=== PATIENT | female | born 1965 | race African-American/Black ===

== ENCOUNTER 2018-02-26 11:42 | Inpatient (IN) | payer OTHER ==
--- NOTE | 2018-02-26 12:11 | PDOC ---
History of Present Illness - General Chief Complaint: Pain Stated Complaint: PAIN Time Seen by Provider: 02/26/18 11:52 History Source: Patient - History of Present Illness Initial Comments: 02/26/18 12:58 52F with pmh of obesity, depression, HTN (on spironolactone, losartan and torsemide), CHF, HLD, dm2, diabetic neuropathy, rheumatoid and osteoarthritis presents to the ED with 10/10 right elbow pain since waking up this morning. The pain is felt over the skin and present from the mid upper arm to the mid forearm. Never had that kind of pain before. Put on a lidocaine patch on it this morning which didn't seem to help. She didn't take any of her medication in 2 days. Last blood sugar she checked was 112 02/26/18 13:18 Past History - Past Medical History Allergies/Adverse Reactions: Allergies Allergy/AdvReac Type Severity Reaction Status Date / Time canagliflozin [From Invokana] Allergy Verified 02/26/18 12:22 Review of Systems - Review of Systems Able to Perform ROS?: Yes Is the patient limited Guamanian proficient: No Constitutional: No: Symptoms Reported HEENTM: No: Symptoms Reported Respiratory: No: Symptoms reported Cardiac (ROS): No: Symptoms Reported ABD/GI: No: Symptoms Reported : No: Symptoms Reported Musculoskeletal: Yes: See HPI. No: Symptoms Reported Integumentary: No: Symptoms Reported Neurological: Yes: See HPI. No: Symptoms reported All Other Systems: Reviewed and Negative *Physical Exam - Physical Exam General Appearance: Yes: Nourished, Appropriately Dressed, Moderate Distress, Obese HEENT: positive: EOMI, PARISH, Normal ENT Inspection Respiratory/Chest: positive: Lungs Clear, Normal Breath Sounds. negative: Chest Tender, Respiratory Distress Cardiovascular: positive: Regular Rhythm, Regular Rate, S1, S2 Gastrointestinal/Abdominal: positive: Normal Bowel Sounds, Flat, Soft. negative : Tender Musculoskeletal: positive: Other (equisitely tender right elbow, hyperalgesia. ) Extremity: negative: Coldness, Swelling, Erythema, Inflammation Neurologic: positive: Fully Oriented, Alert, Normal Mood/Affect, Other (tearful , crying in pain) ED Treatment Course - LABORATORY CBC & Chemistry Diagram: 02/26/18 13:06 02/26/18 13:06 Medical Decision Making - Medical Decision Making 02/26/18 13:38 gout vs arterial emboli vs zoster vs arthritis vs septic joint Despite the hypersensitivity of the skin surface, the lack of evidence of skin lesions makes zoster unlikely. A radial pulse was not appreciated because the patient was in too much pain to be evaluated, however her hand didn't feel cold. Will reassess, pehaps with doppler She has known arthritis but that would hardly explain why she is so hypersensitive. We will check her wbc and uric acid levels to help us r/o gout/septic joint even thought there no swelling or erythema Pain control. FS: 112 02/26/18 14:46 Elevated level of uric acid. Spoke to her PCP. Dr Plunkett who agreed with the plan of giving her indomethacin despite her creatinine level of 1.7, NS, and admitting her. *DC/Admit/Observation/Transfer Diagnosis at time of Disposition: Acute gouty arthritis - Discharge Dispostion Decision to Admit order: Yes - Referrals - Patient Instructions - Post Discharge Activity
[2018-02-26 12:13] VITALS: BMI 69.0
[2018-02-26] MEDS ORDERED: morphine CARPU-JECT 2 MG/1 ML DISP.SYRIN IM ONE (12:25)
--- NOTE | 2018-02-26 12:29 | PDOC ---
Attending Attestation - HPI HPI: 02/26/18 13:52 The patient is a 52 year old female, with a significant past medical history of hypertension, congestive heart failure, COPD, diabetes, peripheral neuropathy, rheumatoid arthritis, osteoarthritis and sciatica, who presents to the emergency department via EMS with right elbow/arm pain since she woke up this morning. The patient reports that she lives in [place] and has all of her medical care at [place] but has been staying with her daughter who lives in [place]. The patient describes the right upper extremity pain as throbbing, rates it a 10/10 in severity and states that she has pain with all movements of the right upper extremity. She states that this is the first time she has ever experienced these symptoms. She is right hand dominant. The patient denies any trauma to the affected extremity. Allergies: Canagliflozin. Past Surgical History: None reported. Social History: Non-smoker. Denies alcohol or drug use. PCP: In [facility]) - Physicial Exam PE: 02/26/18 13:16 GENERAL: Awake, alert and responsive to questions. HEAD: Normal with no signs of trauma. EYES: PERRLA, EOMI, sclera anicteric, conjunctiva clear. ENT: Ears normal, nares patent, oropharynx clear without exudates. Dry mucous membranes. NECK: Normal range of motion, supple without lymphadenopathy, JVD, or masses. LUNGS: Nasal cannula in place. No respiratory distress. Breath sounds equal, clear to auscultation bilaterally. No wheezes, no crackles. HEART: Regular rate and rhythm, normal S1 and S2 without murmur, rub or gallop. ABDOMEN: Soft, nontender, normoactive bowel sounds. No guarding, no rebound. No masses palpable. EXTREMITIES: Right upper extremity, the patient is unable to extend elbow. Warm , but no erythema. Exquisite tenderness to palpation of the right forearm and just above the right elbow. No masses. No drainage. NEUROLOGICAL: Cranial nerves II through XII grossly intact. Normal speech. No focal neurological deficits. MUSCULOSKELETAL: Back nontender to palpation. No CVA tenderness. SKIN: Warm, dry, normal turgor, no rashes or lesions noted. Documentation prepared by Katherine Collazo, acting as medical case worker for Tania Folyd MD. <Katherine Nuñez - Last Filed: 02/26/18 14:45> - Resident Resident Name: Mike Nettles - ED Attending Attestation I have performed the following: I have examined & evaluated the patient, The case was reviewed & discussed with the resident, I agree w/resident's findings & plan, Exceptions are as noted - Medical Decision Making 52 yo RHD F presenting to the ER with a complaint of severe right elbow pain Symptoms began today Unable to range her elbow No fevers No prior episodes like this Given morphine for pain 02/27/18 10:07 Laboratory Tests 02/26/18 13:06 WBC 18.4 H Hgb 8.9 L Hct 29.0 L Plt Count 245 02/27/18 10:08 Laboratory Tests 02/26/18 02/26/18 02/26/18 13:05 13:06 17:50 ESR 109 H BUN 44 H Creatinine 1.7 H C-Reactive Protein 35.4 H Urine Blood 2+ H Urine Nitrite Negative Ur Leukocyte Esterase 3+ H Urine WBC (Auto) 728 02/27/18 10:11 Xray - degenerative changed Will treat UTI ? Gout ? Septic Arthritis ? Septic bursitis Consult Ortho No NSAIDs per pt PMD (Given her renal fxn) Morphine/Tylenol for pain Admit to Hospitalist 02/27/18 10:12 Elbow arthrocentesis by Ortho Appears to be gout, awaiting cell count <Tania Floyd - Last Filed: 02/27/18 10:13>
[2018-02-26] MEDS ORDERED: morphine CARPU-JECT 4 MG/1 ML DISP.SYRIN IVPUSH ONE (13:04)
[2018-02-26] MEDS ORDERED: METHOCARBAMOL 500 MG TABLET PO ONE (13:05)
[2018-02-26] MEDS ORDERED: morphine SULFATE 4 MG/ML VIAL ONE (13:21)
[2018-02-26] MEDS ORDERED: METHOCARBAMOL 500 MG TABLET ONE (13:21)
[2018-02-26 13:35] LABS: BASO % 0.7 % (0-2.0); EOS % 0.2 % (0-4.5); HEMOGLOBIN 8.9 GM/dL (10.7-15.3); LYMPH % 10.5 % (8-40); MCH 20.6 pg (25.7-33.7); MCHC 30.5 g/dl (32.0-36.0); MEAN CELL VOLUME 67.5 fl (80-96); MEAN PLT VOLUME 9.6 fl (7.5-11.1); MONO % 10.3 % (3.8-10.2); NEUT % 78.3 % (42.8-82.8); PLATELET COUNT 245 K/MM3 (134-434); RDW 21.6 % (11.6-15.6); WHITE BLOOD COUNT 18.4 K/mm3 (4.0-10.0)
[2018-02-26 14:05] LABS: ALBUMIN 2.6 g/dl (3.4-5.0); ALK PHOS 133 U/L (45-117); ANION GAP 9 MMOL/L (8-16); BILIRUBIN,TOTAL 0.6 mg/dL (0.2-1); BLOOD UREA NITROGEN 44 mg/dL (7-18); CALCIUM 9.4 mg/dL (8.5-10.1); CHLORIDE 92 mmol/L (98-107); CO2 30 mmol/L (21-32); CREATININE 1.7 mg/dL (0.55-1.3); GLUCOSE,RANDOM 155 mg/dL (74-106); POTASSIUM 4.3 mmol/L (3.5-5.1); SGOT/AST 26 U/L (15-37); SGPT/ALT 25 U/L (13-61); SODIUM 132 mmol/L (136-145); TOT PROT 8.1 g/dl (6.4-8.2)
[2018-02-26] MEDS ORDERED: SODIUM CHLORIDE 1,000 ML IV STA (14:36)
[2018-02-26] MEDS ORDERED: GABAPENTIN 300 MG CAPSULE (FP) PO ONE (14:46)
[2018-02-26] MEDS: INDOMETHACIN 50 MG CAPSULE PO ONE ×2 (14:46→15:24)
[2018-02-26] MEDS ORDERED: GABAPENTIN 100 MG CAPSULE (FP) ONE (14:47)
[2018-02-26 15:09] LABS: ANISOCYTOSIS 2+; MACROCYTOSIS 0; PLATELET ESTIMATE NORMAL; TARGET CELLS 1+
--- NOTE | 2018-02-26 16:05 | HP ---
CHIEF COMPLAINT: R elbow pain x 1 day PCP: HISTORY OF PRESENT ILLNESS: 52 y/o F with PMH HTN, CHF, s/p ICD (2004), COPD (on 2L 02), DM with peripheral neuropathy, RA (not on meds), OA (received jt injections for in past), sciataca , who presents to the ED c/o R elbow pain x 1 day. As per pt, her L ankle became painful x 4 days ago, limiting her ROM. A day later, she developed edema in the joint. During this time, she continued to take her home meds of tramadol and gabapentin without relief. Last night, pt subsequently developed new R elbow pain and swelling that was a 10/10 and a/w throbbing, erythema and limited ROM. Denies trauma to joint, however endorses increased pressure on her RUE when supporting her body d/t LLE pain. Pt has had poor appetite over the past week. Denies SAPP, fever, chills, chest pain or pressure, rashes, other swollen joints, dx of gout, or changes in urinary or bowel function. At baseline she ambulates with a walker and cane. Rheum hx States that she is currently not on meds for RA, and has received jt injections in past for OA. Without current active swollen joints. Family hx positive for ? 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 has not smoked in the past 7 months Alcohol: used to drink heavily on weekends; liquor, wine, beer - has not drank in 7 months Drugs: used to smoke crack cocaine, unable to quantify and "numerous other drugs "; would not elaborate Family History: mother - HTN, arthritis, ?gout Allergies canagliflozin [From Invokana] Allergy (Verified 02/26/18 12:22) HOME MEDICATIONS: Home Medications Medication Instructions Recorded Acetaminophen 650 mg PO PRN PRN 02/26/18 Amitriptyline HCl 25 mg PO HS 02/26/18 Aspirin 81 mg PO DAILY 02/26/18 Atorvastatin Ca [Lipitor] 80 mg PO HS 02/26/18 Bisacodyl Suppository [Dulcolax 10 mg RC DAILY 02/26/18 Suppository -] Budesonide/Formeterol Fumarate 2 inh PO BID 02/26/18 [SYMBICORT 80/4.5mcg -] Calcium Carb, Cit/Mag Cit, Gly 600 each PO DAILY 02/26/18 [Localnesium Tablet] Carvedilol 37.5 mg PO BID 02/26/18 Docusate Sodium 100 mg PO TID 02/26/18 Dulaglutide [Trulicity] 1.5 mg SQ WEEKLY 02/26/18 Gabapentin 300 mg PO HS 02/26/18 Insulin Degludec [Tresiba 98 unit SQ DAILY 02/26/18 Flextouch U-200] Lidocaine 5% Patch [Lidoderm Patch 1 patch TP DAILY 02/26/18 -] Losartan Potassium 25 mg PO DAILY 02/26/18 Spironolactone 25 mg PO DAILY 02/26/18 Tiotropium [place] [Spiriva] 1 inh PO DAILY 02/26/18 Torsemide 40 mg PO HS 02/26/18 Torsemide 80 mg PO DAILY 02/26/18 Tramadol HCl 100 mg PO BID 02/26/18 REVIEW OF SYSTEMS CONSTITUTIONAL: Absent: fever, chills, diaphoresis, generalized weakness, malaise, loss of appetite, weight change HEENT: Absent: rhinorrhea, nasal congestion, throat pain, throat swelling, difficulty swallowing, mouth swelling, ear pain, eye pain, visual changes CARDIOVASCULAR: Absent: chest pain, syncope, palpitations, irregular heart rate, lightheadedness , peripheral edema RESPIRATORY: Absent: cough, shortness of breath, dyspnea with exertion, orthopnea, wheezing, stridor, hemoptysis GASTROINTESTINAL: Absent: abdominal pain, abdominal distension, nausea, vomiting, diarrhea, constipation, melena, hematochezia GENITOURINARY: Absent: dysuria, frequency, urgency, hesitancy, hematuria, flank pain, genital pain MUSCULOSKELETAL: +L ankle pain, +R elbow pain Absent: myalgia, arthralgia, joint swelling, back pain, neck pain SKIN: Absent: rash, itching, pallor HEMATOLOGIC/IMMUNOLOGIC: Absent: easy bleeding, easy bruising, lymphadenopathy, frequent infections ENDOCRINE: Absent: unexplained weight gain, unexplained weight loss, heat intolerance, cold intolerance NEUROLOGIC: Absent: headache, focal weakness or paresthesias, dizziness, unsteady gait, seizure, mental status changes, bladder or bowel incontinence PSYCHIATRIC: Absent: anxiety, depression, suicidal or homicidal ideation, hallucinations. PHYSICAL EXAMINATION Vital Signs - 24 hr 02/26/18 11:43 Temperature 97.7 F Pulse Rate 90 Respiratory 16 Rate Blood Pressure 147/81 O2 Sat by Pulse 100 Oximetry (%) GENERAL: Lying flat, on 2L NC 02, in no acute distress HEAD: Normal with no signs of trauma. EYES: Pupils equal, round and reactive to light, extraocular movements intact EARS, NOSE, THROAT: Ears normal, nares patent, +coating on tongue, with dry mucous membranes NECK: Normal range of motion, supple LUNGS: decreased 2/2 body habitus. however equal, clear to auscultation bilaterally. No wheezes, and no crackles. HEART: Regular rate and rhythm, normal S1 and S2 without murmur, rub or gallop. ABDOMEN: Soft, obese, nontender, not distended, normoactive bowel sounds MUSCULOSKELETAL: L ankle: swollen, limited active and passive ROM. with erythema. LLE: erythema, diffusely TTP. with numerous wounds. R elbow: difficulty with active and passive ROM d/t extreme pain. with erythema, edema. L hand: without swollen joints, nodules, or deviation. R hand: diffusely TTP in all joints LOWER EXTREMITIES: 2+ pt pulses, well-perfused. +pedal edema (L>R) NEUROLOGICAL: Cranial nerves II-XII intact. PSYCHIATRIC: Cooperative. SKIN: Warm, dry, normal turgor Laboratory Results - last 24 hr 02/26/18 02/26/18 02/26/18 12:29 13:06 13:06 WBC 18.4 H RBC 4.30 Hgb 8.9 L Hct 29.0 L MCV 67.5 L MCH 20.6 L MCHC 30.5 L RDW 21.6 H Plt Count 245 MPV 9.6 Absolute Neuts (auto) 14.4 H Neutrophils % 78.3 Lymphocytes % 10.5 Monocytes % 10.3 H Eosinophils % 0.2 Basophils % 0.7 Nucleated RBC % 0 Hypochromia 1+ Platelet Estimate Normal Polychromasia 0 Poikilocytosis 0 Anisocytosis 2+ Microcytosis 2+ Macrocytosis 0 Target Cells 1+ Sodium 132 L Potassium 4.3 Chloride 92 L Carbon Dioxide 30 Anion Gap 9 BUN 44 H Creatinine 1.7 H Creat Clearance w eGFR 31.69 POC Glucometer 112.07348 Random Glucose 155 H Uric Acid Calcium 9.4 Total Bilirubin 0.6 AST 26 ALT 25 Alkaline Phosphatase 133 H C-Reactive Protein 35.4 H Total Protein 8.1 Albumin 2.6 L Additional tests 02/26/18 02/26/18 02/26/18 13:05 13:06 13:06 ESR 109 H Uric Acid 16.1 H* C-Reactive Protein 35.4 H ASSESSMENT/PLAN: 52 y/o F with PMH HTN, CHF, s/p ICD (2004), COPD (on 2L 02), DM with peripheral neuropathy, RA (not on meds), OA (received jt injections for in past), sciataca , who presents to the ED c/o R elbow pain x 1 day. # R elbow pain -with sudden onset R elbow pain. differentials include: gout, pseudogout. has following risk fx: HTN, obesity, DM, elevated uric, on diuretics. without hx of recent alcohol use however heavy drinking in past. no recent trauma. infectious arthritis additional differential -though less likely as afebrile, w/white count. elevated ESR, CRP -will need arthrocentesis to determine etiology; crystal analysis. if inflammatory, wbc >2000 -f/u R elbow XR determine if erosive dz, alternate etiologies -f/u stat coags -rheum consult; Dr. Suarez. will tap this evening -will likely need course of prednisone. tbd by rheum -would not recommend NSAIDs at this time d/t renal fnc #Edematous LLE -with limited ROM d/t body habitus -r/o DVT. f/u duplex #HTN-uncontrolled -recommend holding diuretics at this time may be exacerbating ?gout #ANITHA -encourage PO intake; no IVF at this time d/t CHF #CHF -s/p ICD (2004) -daily wts, fluid restrict, 2g Na control -hold diuretics at this time #COPD -continue 2L 02. currently not in exacerbation -CPAP at night -may use duonebs, nebs PRN #DM -ISS ACHS -BGM #F/E/N no fluids at this time, avoid overload with CHF continue to follow lytes #PPX Hep 5k TID #Dispo observation Visit type - Emergency Visit Emergency Visit: Yes ED Registration Date: 02/26/18 Care time: The patient presented to the Emergency Department on the above date and was hospitalized for further evaluation of their emergent condition. - New Patient This patient is new to me today: Yes Date on this admission: 02/26/18 - Critical Care Critical Care patient: No
--- NOTE | 2018-02-26 16:12 | HP ---
CHIEF COMPLAINT: Right elbow pain and left ankle pain PCP: Emilie PayneArab HISTORY OF PRESENT ILLNESS: 52 yo F with PMH HTN, COPD (2L home O2), Systolic CHF (ICD in place), IDDM with peripheral neuropathy, RA, OA, and sciatica admitted with severe pain in her right elbow that began one day ago but was severely worse on waking up this AM. This pain was preceded by left ankle pain which began 5 days ago. She tried using some of her lidocaine patches on her ankle and arm without relief. She notes swelling and redness in the ankle but no visual changes in her elbow. She denies any episodes previously similar to this and denies any gout history. She denies any trauma, scratches, or bites. Denies any fevers, chills, increased SOB from baseline, chest pain, abdominal pain, n/v/d. ER course was notable for: (1) Elbow X-ray (2) Morphine 4 mg IV, Neurontin, Robaxin (3) Recent Travel: none PAST MEDICAL HISTORY: HTN, COPD (2L home O2), Systolic CHF (ICD in place), IDDM with peripheral neuropathy, RA, OA, and sciatica PAST SURGICAL HISTORY: I&D of finger on left hand Carpal tunnel release Social History: Smoking: Former heavy smoker, currently one pack per week for the last 7 month Alcohol: Former heavy drinker on weekends, but has not had alcohol in recent history Drugs: Former crack cocaine user Family History: Allergies canagliflozin [From Invokana] Allergy (Verified 02/26/18 12:22) HOME MEDICATIONS: Home Medications Medication Instructions Recorded Acetaminophen 650 mg PO PRN PRN 02/26/18 Amitriptyline HCl 25 mg PO HS 02/26/18 Aspirin 81 mg PO DAILY 02/26/18 Atorvastatin Ca [Lipitor] 80 mg PO HS 02/26/18 Bisacodyl Suppository [Dulcolax 10 mg RC DAILY 02/26/18 Suppository -] Budesonide/Formeterol Fumarate 2 inh PO BID 02/26/18 [SYMBICORT 80/4.5mcg -] Calcium Carb, Cit/Mag Cit, Gly 600 each PO DAILY 02/26/18 [Localnesium Tablet] Carvedilol 37.5 mg PO BID 02/26/18 Docusate Sodium 100 mg PO TID 02/26/18 Dulaglutide [Trulicity] 1.5 mg SQ WEEKLY 02/26/18 Gabapentin 300 mg PO HS 02/26/18 Insulin Degludec [Tresiba 98 unit SQ DAILY 02/26/18 Flextouch U-200] Lidocaine 5% Patch [Lidoderm Patch 1 patch TP DAILY 02/26/18 -] Losartan Potassium 25 mg PO DAILY 02/26/18 Spironolactone 25 mg PO DAILY 02/26/18 Tiotropium [place] [Spiriva] 1 inh PO DAILY 02/26/18 Torsemide 40 mg PO HS 02/26/18 Torsemide 80 mg PO DAILY 02/26/18 Tramadol HCl 100 mg PO BID 02/26/18 REVIEW OF SYSTEMS CONSTITUTIONAL: Absent: fever, chills, diaphoresis, generalized weakness, malaise, loss of appetite, weight change HEENT: Absent: rhinorrhea, nasal congestion, throat pain, throat swelling, difficulty swallowing, mouth swelling, ear pain, eye pain, visual changes CARDIOVASCULAR: Absent: chest pain, syncope, palpitations, irregular heart rate, lightheadedness , peripheral edema RESPIRATORY: shortness of breath (baseline), dyspnea with exertion, orthopnea ( baseline) Absent: cough, , wheezing, stridor, hemoptysis GASTROINTESTINAL: Absent: abdominal pain, abdominal distension, nausea, vomiting, diarrhea, constipation, melena, hematochezia GENITOURINARY: Absent: dysuria, frequency, urgency, hesitancy, hematuria, flank pain, genital pain MUSCULOSKELETAL: arthralgia, joint swelling, back pain Absent: myalgia, , neck pain SKIN: Absent: rash, itching, pallor HEMATOLOGIC/IMMUNOLOGIC: Absent: easy bleeding, easy bruising, lymphadenopathy, frequent infections ENDOCRINE: Absent: unexplained weight gain, unexplained weight loss, heat intolerance, cold intolerance NEUROLOGIC: Absent: headache, focal weakness or paresthesias, dizziness, unsteady gait, seizure, mental status changes, bladder or bowel incontinence PSYCHIATRIC: Absent: anxiety, depression, suicidal or homicidal ideation, hallucinations. PHYSICAL EXAMINATION Vital Signs - 24 hr 02/26/18 11:43 Temperature 97.7 F Pulse Rate 90 Respiratory 16 Rate Blood Pressure 147/81 O2 Sat by Pulse 100 Oximetry (%) GENERAL: A&O, Moderate acute distress out of proportion to exam, likely secondary to pain HEAD: Normocephalic, atraumatic. EYES: PERRL, no scleral icterus EARS, NOSE, THROAT: oropharynx clear without exudates. Dry mucous membranes. NECK: supple without lymphadenopathy LUNGS: Mild wheezes noted, decreased breath sounds diffusely HEART: Regular rate and rhythm, normal S1 and S2 without murmur ABDOMEN: Soft, morbidly obese, nontender to palpation, normoactive bowel sounds MUSCULOSKELETAL: Exam limited due to pain, severe tenderness to palpation of right elbow and left ankle, active and passive ROM very minimally tolerated. Left ankle with some erythema and swelling. EXTREMITIES: 2+ pulses, warm, well-perfused. No peripheral edema. NEUROLOGICAL: Cranial nerves II-XII grossly intact. Normal speech. PSYCHIATRIC: Cooperative. Good eye contact. Heightened emotional response SKIN: Warm, dry, no rashes or lesions noted Laboratory Results - last 24 hr 02/26/18 02/26/18 02/26/18 12:29 13:06 13:06 WBC 18.4 H RBC 4.30 Hgb 8.9 L Hct 29.0 L MCV 67.5 L MCH 20.6 L MCHC 30.5 L RDW 21.6 H Plt Count 245 MPV 9.6 Absolute Neuts (auto) 14.4 H Neutrophils % 78.3 Lymphocytes % 10.5 Monocytes % 10.3 H Eosinophils % 0.2 Basophils % 0.7 Nucleated RBC % 0 Hypochromia 1+ Platelet Estimate Normal Polychromasia 0 Poikilocytosis 0 Anisocytosis 2+ Microcytosis 2+ Macrocytosis 0 Target Cells 1+ Sodium 132 L Potassium 4.3 Chloride 92 L Carbon Dioxide 30 Anion Gap 9 BUN 44 H Creatinine 1.7 H Creat Clearance w eGFR 31.69 POC Glucometer 112.67933 Random Glucose 155 H Uric Acid Calcium 9.4 Total Bilirubin 0.6 AST 26 ALT 25 Alkaline Phosphatase 133 H C-Reactive Protein 35.4 H Total Protein 8.1 Albumin 2.6 L 02/26/18 13:06 WBC RBC Hgb Hct MCV MCH MCHC RDW Plt Count MPV Absolute Neuts (auto) Neutrophils % Lymphocytes % Monocytes % Eosinophils % Basophils % Nucleated RBC % Hypochromia Platelet Estimate Polychromasia Poikilocytosis Anisocytosis Microcytosis Macrocytosis Target Cells Sodium Potassium Chloride Carbon Dioxide Anion Gap BUN Creatinine Creat Clearance w eGFR POC Glucometer Random Glucose Uric Acid 16.1 H* Calcium Total Bilirubin AST ALT Alkaline Phosphatase C-Reactive Protein Total Protein Albumin ASSESSMENT/PLAN: 52 yo F with PMH HTN, COPD (2L home O2), Systolic CHF (ICD in place), IDDM with peripheral neuropathy, RA, OA, and sciatica admitted with severe pain in her right elbow that began one day ago but was severely worse on waking up this AM. Right Elbow and Left Ankle Pain -Most likely new onset of Gout -ESR, CRP elevated -Uric acid 16.1 -Xray noted -Ortho and Rheumatology both consulted, one of which tap the elbow tonight -Following Arthrocentesis pt should receive steroids, will defer to rheumatology -Avoid NSAIDs with current renal function and unknown renal history Elevated BUN/Cr -Pt states that her BUN/Cr are monitored by her chief lock operator as she is on multiple diuretics -She does not however endorse knowing if the numbers were ever elevated -Currently 44/1.7 -Trend BMP -Encouraged PO intake COPD -Requires 2L of home O2 -Verify and continue home regimen Systolic CHF -Currently stable with no signs of acute fluid overload -Case discussed with PCP who states echo which revealed EF of 30-35% -Pt with known AICD in place -Hold fluids for now, but with elevated BUN/Cr and clinically dry, encouraged pt for PO intake IDDM -BGMs ACHS -Insulin Sliding scale for glycemic control Sciatica/OA/RA -Verify and Continue home pain medication regimen DVT Prophylaxis -Heparin 5000 units SQ TID FEN -Fluids: NONE -Electrolytes: No electrolyte abnormalities, BMP in AM -Nutrition: Diabetic Na Controlled Diet Disposition Med/Surg Visit type - Emergency Visit Emergency Visit: Yes ED Registration Date: 02/26/18 Care time: The patient presented to the Emergency Department on the above date and was hospitalized for further evaluation of their emergent condition. - New Patient This patient is new to me today: Yes Date on this admission: 02/26/18 - Critical Care Critical Care patient: No
--- NOTE | 2018-02-26 17:13 | PN ---
Teaching Attending Note Name of Resident: Darrius Davis ATTENDING PHYSICIAN STATEMENT I saw and evaluated the patient. I reviewed the resident's note and discussed the case with the resident. I agree with the resident's findings and plan as documented with exceptions below. SUBJECTIVE: 52 yf with pMHx of NICM, systolic HF, last EF 30-35% 1.5 years ago, S/p ICD 2004 , prior h/o etoh/cocaine use, HTN, morbid obesity, DINA on nightly CPAP, IDDM, HLD, LLE neuropathy with chronic pain, CKD (last cr 01/2018 1.6), COPD on 2L home oxygen, ?rheumatoid arthritis, Osteoarthritis, recently admitted with CHF exac in 12/2017, then with low back pain on short steroid taper, sent to rehab, d/[facility] home recently had left ankle pain/swelling/redness limiting her ambulation starting 4-5 days ago. This AM woke up with sudden onset of right elbow pain with inability to move shoulder, prompting her to come to the ED. Denies any fevers, chills, recent trauma, prior h/o gout. Reports minimal ambulation last 4-5 days, also decreased PO intake. Confirms compliance with her medications, sleeps in a recliner but no recent orthopnea/PND, chest pain, palpitations, dyspnea, dizziness or concerns otherwise. 12 point ROS done, as above OBJECTIVE: Vital Signs Period Temp Pulse Resp BP Sys/Bowen Pulse Ox Last 24 Hr 97.7 F 90 16 147/81 100 Intake & Output 02/23/18 02/24/18 02/25/18 02/26/18 23:59 23:59 23:59 23:59 Weight 390 lb GENERAL: Awake, alert, and fully oriented, in no acute distress, anxious but co- operative, in no acute distress. HEAD: Normal with no signs of trauma. EYES: Pupils equal, round and reactive to light, extraocular movements intact, sclera anicteric, conjunctiva clear. No lid lag. EARS, NOSE, THROAT: Ears normal, nares patent, oropharynx clear without exudates. dry lips and mucous membrane NECK: soft, supple, no JVD visualized but exam limited by habitus LUNGS: Breath sounds equal, clear to auscultation bilaterally. No wheezes, and no crackles. No accessory muscle use. HEART:S1S2 regular ABDOMEN: Soft, obese, nontender, not distended, normoactive bowel sounds, no guarding, no rebound, no masses. MUSCULOSKELETAL: refusing right elbow exam, wincing in pain with minimal to no palpation of Right elbow/forearm fingers, able to move fingers, no swelling/ erythema of fingers or right wrist noted, Morbidly obese, but no obvious swelling/erthema/warmth noted, refuses ROM exam, screams on slight touch UPPER EXTREMITIES: as above, otherwise unremarkable LOWER EXTREMITIES: LLE redness/erythema/swelling lower 1/3rd, some decrease ROM left ankle, no calf tenderness, chronic skin hyperpigmentation with superimposed swelling/erythema/tenderness noted NEUROLOGICAL: Cranial nerves II-XII intact. Normal speech. Gait deferred PSYCHIATRIC: Cooperative. Good eye contact. Appropriate mood and affect. SKIN: Warm, dry, normal turgor, no rashes or lesions noted, normal capillary refill. Home Medications Medication Instructions Recorded Acetaminophen 650 mg PO Q4H PRN 02/26/18 Amitriptyline HCl 25 mg PO HS 02/26/18 Aspirin 81 mg PO DAILY 02/26/18 Atorvastatin Ca [Lipitor] 80 mg PO HS 02/26/18 Bisacodyl Suppository [Dulcolax 10 mg RC DAILY 02/26/18 Suppository -] Budesonide/Formeterol Fumarate 2 inh PO BID 02/26/18 [SYMBICORT 80/4.5mcg -] Calcium Carb, Cit/Mag Cit, Gly 600 mg PO DAILY 02/26/18 [Localnesium Tablet] Carvedilol 37.5 mg PO BID 02/26/18 Docusate Sodium 100 mg PO TID 02/26/18 Dulaglutide [Trulicity] 1.5 mg SQ WEEKLY 02/26/18 Gabapentin 300 mg PO HS 02/26/18 Insulin Degludec [Tresiba 98 unit SQ DAILY 02/26/18 Flextouch U-200] Lidocaine 5% Patch [Lidoderm Patch 1 patch TP DAILY 02/26/18 -] Losartan Potassium 25 mg PO DAILY 02/26/18 Spironolactone 25 mg PO DAILY 02/26/18 Tiotropium [place] [Spiriva] 1 inh PO DAILY 02/26/18 Torsemide 40 mg PO HS 02/26/18 Torsemide 80 mg PO DAILY 12/20/18 Tramadol HCl 100 mg PO Q12H PRN 02/26/18 Active Medications Heparin Sodium (Porcine) (Heparin -) 5,000 unit SQ TID DERECK Insulin Aspart (Novolog Vial Sliding Scale -) 1 vial SQ ACHS [facility]; Protocol Laboratory Results - last 24 hr 02/26/18 02/26/18 02/26/18 12:29 13:05 13:06 WBC 18.4 H RBC 4.30 Hgb 8.9 L Hct 29.0 L MCV 67.5 L MCH 20.6 L MCHC 30.5 L RDW 21.6 H Plt Count 245 MPV 9.6 Absolute Neuts (auto) 14.4 H Neutrophils % 78.3 Lymphocytes % 10.5 Monocytes % 10.3 H Eosinophils % 0.2 Basophils % 0.7 Nucleated RBC % 0 Hypochromia 1+ Platelet Estimate Normal Polychromasia 0 Poikilocytosis 0 Anisocytosis 2+ Microcytosis 2+ Macrocytosis 0 Target Cells 1+ ESR 109 H Sodium Potassium Chloride Carbon Dioxide Anion Gap BUN Creatinine Creat Clearance w eGFR POC Glucometer 112.95232 Random Glucose Uric Acid Calcium Total Bilirubin AST ALT Alkaline Phosphatase C-Reactive Protein Total Protein Albumin 02/26/18 02/26/18 13:06 13:06 WBC RBC Hgb Hct MCV MCH MCHC RDW Plt Count MPV Absolute Neuts (auto) Neutrophils % Lymphocytes % Monocytes % Eosinophils % Basophils % Nucleated RBC % Hypochromia Platelet Estimate Polychromasia Poikilocytosis Anisocytosis Microcytosis Macrocytosis Target Cells ESR Sodium 132 L Potassium 4.3 Chloride 92 L Carbon Dioxide 30 Anion Gap 9 BUN 44 H Creatinine 1.7 H Creat Clearance w eGFR 31.69 POC Glucometer Random Glucose 155 H Uric Acid 16.1 H* Calcium 9.4 Total Bilirubin 0.6 AST 26 ALT 25 Alkaline Phosphatase 133 H C-Reactive Protein 35.4 H Total Protein 8.1 Albumin 2.6 L Right elbow xray -degenerative changes ASSESSMENT AND PLAN: 52 yf with pMHx of NICM, systolic HF, last EF 30-35% 1.5 years ago, S/p ICD 2004 , prior h/o etoh/cocaine use, HTN, morbid obesity, DINA on nightly CPAP, IDDM, HLD, LLE neuropathy with chronic pain, CKD (last cr 01/2018 1.6), ?rheumatoid arthritis, Osteoarthritis, admitted with right elbow and Left ankle pain/ limitation of movements. -Right elbow/left ankle pain with limitation of ROM, sudden onset/uric acid/ overall findings suspicious for acute gout flare, r/o RA/pseudogout/infectious process (low suspicion), no history concerning for trauma -NICM, systolic HF, last EF 30-35% 1.5 years ago, S/p ICD 2004 -LLE swelling/erythema -IDDM -HTN -Morbid obesity -DINA on nightly CPAP -HLD -LLE neuropathy -CKD (last cr in 01/2018 1.6) -?Rheumatoid arthritis -Osteoarthritis -h/o ETOH/Cocaine use -COPD on 2L home oxygen Plan: Orthopedic/rheumatology consult. Right elbow +/- Left ankle arthrocentesis Not a candidate for NSAIDs/colchicine. Hold off on steroids, start based on aspirate findings. Blood cx sent. Presentation not suggestive of infectious process. Hold off antibiotics, monitor closely for now. Follow up orthopedic recs. LLE Duplex. Avoid IVF. Cr around baseline. Looks dry clinically. Hold ARF/Aldactone/torsemide today, resume in AM based on volume status. Strict I/os and daily weights. ISS, diabetic diet. Nebs, home oxygen. Nightly CPAP TYlenol/tramadol for pain DVTPPX with heparin. Dispo pending clinical improvement. Will need PT eval and dispo planning once improved. Plan discussed with patient and daughter at bedside in detail, all questions answered. Care co-ordinated with ED. Dr. Suarez, Orthopedic Dr. Garner Total admit time spent 65 min.
[2018-02-26] MEDS ORDERED: ACETAMINOPHEN 325 MG TABLET (FP) PO PRN (17:21)
[2018-02-26] MEDS ORDERED: traMADol HCL 50 MG TABLET PO PRN ×2 (17:21→17:36)
[2018-02-26] MEDS ORDERED: LIDOCAINE 5% TOPICAL PATCH TP SCH (17:30)
[2018-02-26] MEDS ORDERED: PATIENT'S OWN MEDICATION (NON-FORMULARY) (Dulaglutide [Trulicity] 1.5 MG) SQ SCH (17:30)
[2018-02-26] MEDS: INSULIN SLIDING SCALE (NOVOLOG) 1 VIAL SQ SCH (17:37)
[2018-02-26] MEDS ORDERED: traMADol HCL 50 MG TABLET ONE (18:00)
[2018-02-26] MEDS ORDERED: LIDOCAINE HCL 1%, 10 MG/ML (20ML VIAL) ONE (18:04)
--- NOTE | 2018-02-26 18:10 | CONSULT ---
Consult - text type - Consultation Consultation Note: ORTHOPEDIC SURGERY CONSULTATION NOTE Department of Orthopedic Surgery HISTORY OF PRESENT ILLNESS Ms. Orantes is a 52 year old female who presents to [facility] Emergency Room with right elbow pain. The orthopedic service was consulted for rule out septic right elbow. There was no trauma or specific incident, and the pain started yesterday. The patient notes significant pain to the right elbow with movement; it improves with rest. Denies any other injuries. Denies numbness, tingling or other constitutional complaints. Denies fever/chills or previous pain in her right elbow. Endorses tobacco use, and denies drug use and alcohol abuse. The patient lives with family, her daughter is at bedside. FAMILY HISTORY N/A REVIEW OF SYMPTOMS A twelve-point review of systems was performed and was negative except as noted in HPI. PHYSICAL EXAM Constitutional: Alert and oriented to person, place, and time. Appears well- developed and well-nourished. No acute distress, appropriate mood and affect. Right Upper Extremity: Skin warm, dry, and intact; no lesions, rashes or ulcers noted. Muscle mass equal and symmetric to contralateral side. No atrophy noted. No masses or effusions noted. Tender to palpation at her right elbow. She has pain with any ROM of the elbow. She is nontender throughout rest of extremity. Joints stable with no pathologic laxity. M/R/U/MSK/AX motor intact; SILT distally; 2+ radial pulses; Cap refill brisk. Tone and reflexes normal. Left Upper Extremity: Skin warm, dry, and intact; no lesions, rashes or ulcers noted. Muscle mass equal and symmetric to contralateral side. No atrophy noted. No masses or effusions noted. No tenderness to palpation all joints; nontender throughout rest of extremity. Full passive and active ROM, free from pain. Joints stable with no pathologic laxity. M/R/U/MSK/AX motor intact; SILT distally; 2+ radial pulses; Cap refill brisk. Tone and reflexes normal. Right Lower Extremity: Skin warm, dry, and intact; no lesions, rashes or ulcers noted. Muscle mass equal and symmetric to contralateral side. No atrophy noted. No masses or effusions noted. No tenderness to palpation all joints, nontender throughout rest of extremity. No cords or calf tenderness No significant calf/ankle edema. Full passive and active ROM, free from pain. Joints stable with no pathologic laxity. EHL/TA/GS motor intact; SILT distally; 2+ DP pulses; Cap refill brisk. Tone and reflexes normal. Left Lower Extremity: Skin warm, dry, and intact; no lesions, rashes or ulcers noted. Muscle mass equal and symmetric to contralateral side. No atrophy noted. No masses or effusions noted. No tenderness to palpation all joints; nontender throughout rest of extremity. No cords or calf tenderness No significant calf/ankle edema. Full passive and active ROM, free from pain. Joints stable with no pathologic laxity. EHL/TA/GS motor intact; SILT distally; 2+ DP pulses; Cap refill brisk. Tone and reflexes normal. Active Problems Problem Status Category Onset Acute gouty arthritis Acute Medical Social History Smoking history Smoker Hx Alcohol Use No Allergies Allergy/AdvReac Type Severity Reaction Status Date / Time canagliflozin [From Theranosokana] Allergy Verified 02/26/18 12:22 Active Medications Generic Name Dose Route Start Last Admin Trade Name Freq PRN Reason Stop Dose Admin Acetaminophen 650 mg 02/26/18 17:21 Tylenol - PO Q4H PRN PAIN LEVEL 1-5 Amitriptyline HCl 25 mg 02/26/18 22:00 Elavil - PO HS [facility] Aspirin 81 mg 02/27/18 10:00 Asa - PO DAILY [facility] Atorvastatin Calcium 80 mg 02/26/18 22:00 Lipitor - PO HS [facility] Budesonide/Formoterol Fumarate 2 puff 02/26/18 22:00 Symbicort 80/4.5mcg - IH BID [facility] Calcium Carbonate/Cholecalciferol 1 tab 02/27/18 10:00 Os-Lito 500+D - PO DAILY [facility] Carvedilol 37.5 mg 02/26/18 22:00 Coreg - PO BID [facility] Docusate Sodium 100 mg 02/26/18 22:00 Colace - PO TID [facility] Gabapentin 300 mg 02/26/18 22:00 Neurontin - PO HS [facility] Heparin Sodium (Porcine) 5,000 unit 02/26/18 22:00 Heparin - SQ TID [facility] Insulin Aspart 1 vial 02/26/18 16:30 02/26/18 17:37 Novolog Vial Sliding Scale - SQ Not Given ACHS [facility] Protocol Lidocaine 1 patch 02/26/18 17:30 Lidoderm Patch - TP DAILY [facility] Miscellaneous 1 each 02/26/18 22:00 Lidoderm Patch Removal MC DAILY@2200 [facility] Non-Formulary Medication 1.5 mg 02/26/18 17:30 Dulaglutide [Trulicity] SQ WEEKLY [facility] Tiotropium [place] 2 puff 02/27/18 10:00 Spiriva Respimat IH DAILY DERECK Tramadol HCl 50 mg 02/26/18 17:36 Ultram - PO Q6H PRN PAIN LEVEL 6-10 Vital Signs (last) Temp Pulse Resp BP Pulse Ox 97.7 F 90 16 147/81 100 02/26/18 11:43 02/26/18 11:43 02/26/18 11:43 02/26/18 11:43 02/26/18 11:43 Intake and Output 02/24/18 02/25/18 02/26/18 23:59 23:59 23:59 Other: Weight 390 lb Height 5 ft 3 in Body Mass Index (BMI) 69.0 Weight Measurement Method Est/Stated by Patient Laboratory 02/26/18 13:06 02/26/18 13:06 IMAGING I personally reviewed all radiographs. They demonstrate no fractures, dislocations, or bony lesions. There is mild signs of OA in cluding a lateral bone spur. PROCEDURE NOTE: Right Elbow Aspiration: Consent was obtained after discussion of the risks, benefits, alternatives, including, but not limited to bleeding, pain, infection, post injection-flare, skin disruption or hypopigmentation, and temporary increase in serum blood glucose. Laterality was confirmed (timeout). The lateral elbow was prepped with chlorhexidine and alcohol. 3 cc's of 1% plain lidocaine was injected into the SQ skin at the designated insertion point using a 23gauge needle. The patient tolerated this well. The elbow was then reprepped with cholrohexidine, and an 18 gauge needle was then introduced into the right elbow joint through this area. 7 cc's of straw-colored fluid was aspirated from the right elbow space using the lateral soft spot approach without difficulty. The site was cleaned and dressed with sterile 4x4's and kerlix dressing. The patient tolerated this well and there were no complications. ASSESSMENT AND PLAN Ms. Orantes is a 52 year old female presenting with right elbow pain. We have reviewed the imaging and clinical findings in detail, as well as their potential implications. After appropriate informed discussion, the patients elbow was aspirated and sent to the lab for evaluation. FU synovial fluid results: cell count, culture, gram stain, and crystals. NPO - Hold Heparin CBC/BMP/Coags CRP/ESR trend - Admit to medical team for medical management - Will follow All questions were answered. Thank you for involving our team in the care of this patient. We will follow the patient with you. Please call us at [phone] with questions.
[2018-02-26 18:12] LABS: PH,URINE 5.5 (5.0-8.0); URINE APPEARANCE Cloudy; URINE BILIRUBIN Negative (<2.0 mg/dL); URINE COLOR Yellow; URINE GLUCOSE (UA) Negative (NEGATIVE); URINE KETONE Negative (NEGATIVE); URINE LEUK ESTERASE 3+ (NEGATIVE); URINE NITRITE Negative (NEGATIVE); URINE PROTEIN 1+ (NEGATIVE); URINE UROBILINOGEN 0.2 mg/dL (0.2-1.0)
--- NOTE | 2018-02-26 19:06 | PDOC ---
*Physical Exam - Vital Signs Last Vital Signs Temp Pulse Resp BP Pulse Ox 97.7 F 90 16 147/81 100 02/26/18 11:43 02/26/18 11:43 02/26/18 11:43 02/26/18 11:43 02/26/18 11:43 ED Treatment Course - LABORATORY CBC & Chemistry Diagram: 02/26/18 13:06 02/26/18 13:06 - ADDITIONAL ORDERS Additional order review: Laboratory Results 02/26/18 02/26/18 02/26/18 13:06 13:06 12:29 Sodium 132 L Potassium 4.3 Chloride 92 L Carbon Dioxide 30 Anion Gap 9 BUN 44 H Creatinine 1.7 H Creat Clearance w eGFR 31.69 POC Glucometer 112.43044 Random Glucose 155 H Uric Acid 16.1 H* Calcium 9.4 Total Bilirubin 0.6 AST 26 ALT 25 Alkaline Phosphatase 133 H C-Reactive Protein 35.4 H Total Protein 8.1 Albumin 2.6 L 02/26/18 02/26/18 13:06 12:29 RBC 4.30 MCV 67.5 L MCHC 30.5 L RDW 21.6 H MPV 9.6 Neutrophils % 78.3 Lymphocytes % 10.5 Monocytes % 10.3 H Eosinophils % 0.2 Basophils % 0.7 POC Glucometer 112.13595 - RADIOLOGY Radiology Studies Ordered: Category Date Time Status ELBOW-RIGHT [RAD] Stat Radiology 02/26/18 12:23 Completed - Medications Given in the ED: ED Medications Discontinued Medications Generic Name Dose Route Start Last Admin Trade Name Freq PRN Reason Stop Dose Admin Gabapentin 300 mg 02/26/18 14:46 02/26/18 14:49 Neurontin - PO 02/26/18 14:47 300 mg ONCE ONE Administration Sodium Chloride 1,000 mls @ 1,000 mls/hr 02/26/18 14:36 02/26/18 14:46 Normal Saline - IV 02/26/18 15:35 1,000 mls/hr ASDIR STA Administration Indomethacin 50 mg 02/26/18 14:33 02/26/18 15:24 Indocin - PO 02/26/18 14:34 50 mg ONCE ONE Administration Methocarbamol 500 mg 02/26/18 13:05 02/26/18 13:25 Robaxin - PO 02/26/18 13:06 500 mg ONCE ONE Administration Morphine Sulfate 2 mg 02/26/18 12:25 02/26/18 12:57 Morphine Injection - IM 02/26/18 12:26 Not Given ONCE ONE Morphine Sulfate 4 mg 02/26/18 13:04 02/26/18 13:25 Morphine Injection - IVPUSH 02/26/18 13:05 4 mg ONCE ONE Administration Oxycodone/Acetaminophen 2 combo 02/26/18 12:56 02/26/18 13:16 Percocet 5/325 - PO 02/26/18 12:57 Not Given ONCE ONE *DC/Admit/Observation/Transfer Diagnosis at time of Disposition: Acute gouty arthritis - Discharge Dispostion Decision to Admit order Date/Time: Decision to Admit Order Category Date Time Status Decision to Admit to Hospital Routine Admission 02/26/18 14:44 Active - Referrals - Patient Instructions - Post Discharge Activity Procedures - Arthrocentesis Indication: Crystals (Gout/Psuedogout Arthrocentesis Site: right: shoulder Flexion: >30 degrees Betadine Prep: Yes Sterile Dressing Applied: Yes Dry Tap: No Fluid Color: Straw colored Fluid Amount mL: 5 (7mL) Anesthesia: 1% Lidocaine Needle Size (guage): 18g Complications: No
[2018-02-26 19:45] LABS: SYNOVIAL FLUID RBC 4886 /mm3
[2018-02-26 20:16] LABS: URINE BACTERIA MANY /hpf (NONE SEEN)
--- NOTE | 2018-02-26 20:25 | CONSULT ---
Consult Consult Specialty:: Rheumatology - History of Present Illness History of Present Illness: 52 yo Female with PMH of HTN, COPD (2L home O2), Systolic CHF (ICD in place), IDDM with peripheral neuropathy, OA, and chronic low back admitted with acute left ankle and right elbow pain. HPI Yesterday she developed pain in the left ankle and today she had significant progression of the pain and developed pain in the right elbow. The pain is severe and it is worse with walking of movements. She denies other joint involvement and denies history of acute arthritis. In the hospital she has not have fever. She was seen by Orthopedics and had the right elbow aspirated. Laboratory work-up: CBC with WBC of 18.4, Hgb 8.9, HCT 29 and platelets 245. ESR 109 and CRP 35.4 (N<0.3). Creatinine 1.7, alkaline phhosphatase 133 and transaminases normal. UA with protein 1`+, blood 2+ and LE 3+. Uric acid 16.1. Synovial fluid with WBC 92,391. Crystals, gram stain and culture pending - History Source History Provided By: Patient, Medical Record - Past Medical History Cardio/Vascular: Yes: CHF, HTN, Hyperlipdemia Pulmonary: Yes: COPD Musculoskeletal: Yes: Chronic low back pain Endocrine: Yes: Diabetes Mellitus - Alcohol/Substance Use Hx Alcohol Use: No - Smoking History Smoking history: Unknown if ever smoked Have you smoked in the past 12 months: No Home Medications - Allergies Allergies/Adverse Reactions: Allergies Allergy/AdvReac Type Severity Reaction Status Date / Time canagliflozin [From Invokana] Allergy Verified 02/26/18 12:22 - Home Medications Home Medications: Ambulatory Orders Acetaminophen 650 mg PO Q4H PRN 02/26/18 Amitriptyline HCl 25 mg PO HS 02/26/18 Aspirin 81 mg PO DAILY 02/26/18 Atorvastatin Ca [Lipitor] 80 mg PO HS 02/26/18 Bisacodyl Suppository [Dulcolax Suppository -] 10 mg RC DAILY 02/26/18 Budesonide/Formeterol Fumarate [SYMBICORT 80/4.5mcg -] 2 inh PO BID 02/26/18 Calcium Carb, Cit/Mag Cit, Gly [Localnesium Tablet] 600 mg PO DAILY 02/26/18 Carvedilol 37.5 mg PO BID 02/26/18 Docusate Sodium 100 mg PO TID 02/26/18 Dulaglutide [Trulicity] 1.5 mg SQ WEEKLY 02/26/18 Gabapentin 300 mg PO HS 02/26/18 Insulin Degludec [Tresiba Flextouch U-200] 98 unit SQ DAILY 02/26/18 Lidocaine 5% Patch [Lidoderm Patch -] 1 patch TP DAILY 02/26/18 Losartan Potassium 25 mg PO DAILY 02/26/18 Spironolactone 25 mg PO DAILY 02/26/18 Tiotropium [place] [Spiriva] 1 inh PO DAILY 02/26/18 Torsemide 40 mg PO HS 02/26/18 Torsemide 80 mg PO DAILY 02/26/18 Tramadol HCl 100 mg PO Q12H PRN 02/26/18 Review of Systems - Review of Systems Constitutional: reports: Malaise Eyes: reports: No Symptoms HENT: reports: No Symptoms Neck: reports: No Symptoms Cardiovascular: reports: No Symptoms Respiratory: reports: No Symptoms Gastrointestinal: reports: No Symptoms Musculoskeletal: reports: Other (See HPI) Physical Exam Vital Signs: Vital Signs Temperature 97.7 F 02/26/18 11:43 Pulse Rate 82 02/26/18 16:06 Respiratory Rate 20 02/26/18 16:06 Blood Pressure 145/82 02/26/18 16:06 O2 Sat by Pulse Oximetry (%) 100 02/26/18 16:06 Constitutional: Yes: Severe Distress Eyes: Yes: WNL HENT: Yes: WNL Neck: Yes: WNL Cardiovascular: Yes: WNL Respiratory: Yes: WNL Gastrointestinal: Yes: WNL Musculoskeletal: Yes: Other (Severe tenderness in the right elbow and tenderness and swelling in the left ankle.) Labs: CBC, BMP 02/26/18 13:06 02/26/18 13:06 Laboratory Tests 02/26/18 02/26/18 02/26/18 13:05 13:06 13:06 ESR 109 H Uric Acid 16.1 H* Calcium 9.4 Total Bilirubin 0.6 AST 26 ALT 25 Alkaline Phosphatase 133 H C-Reactive Protein 35.4 H Total Protein 8.1 Albumin 2.6 L Urine Color Urine Appearance Urine pH Ur Specific [place] Urine Protein Urine Glucose (UA) Urine Ketones Urine Blood Urine Nitrite Urine Bilirubin Urine Urobilinogen Ur Leukocyte Esterase Synovial WBC 02/26/18 02/26/18 17:50 18:52 ESR Uric Acid Calcium Total Bilirubin AST ALT Alkaline Phosphatase C-Reactive Protein Total Protein Albumin Urine Color Yellow Urine Appearance Cloudy Urine pH 5.5 Ur Specific [place] 1.015 Urine Protein 1+ H Urine Glucose (UA) Negative Urine Ketones Negative Urine Blood 2+ H Urine Nitrite Negative Urine Bilirubin Negative Urine Urobilinogen 0.2 Ur Leukocyte Esterase 3+ H Synovial WBC [id number] Problem List - Problems (1) Acute gouty arthritis Assessment/Plan: Acute arthritis in the right elbow and left ankle. Significant leukocytosis. elevated ESR, uric acid 16.1 and synovial fluid with very high WBC (92,391). Chronic kidney disease (creatinine1.7) Probable gouty arthritis, rule out septic arthritis. As per discussion with Dr. Garner (orthopedics) he will do a lavage of the right elbow. If Gram stain is negative and crystals positive I will start tomorrow Prednisone 40 mg/d Code(s): M10.9 - GOUT, UNSPECIFIED
[2018-02-26 21:08] LABS: INR 1.29 (0.83-1.09); PROTHROMBIN TIME (PATIENT) 15.3 SEC (9.7-13.0)
[2018-02-26 21:11] LABS: ACTIVATED PTT 32.6 SECONDS (25.2-36.5)
--- NOTE | 2018-02-26 21:17 | PN ---
Progress Note (short form) - Note Progress Note: Update: Synovial fluid studies resolved with 92,000 WBC with crystals pending. Cultures and gram stain sent at this point as well. Discussed with Dr. Garner and Dr. Suarez and pt is planned to go to OR tonight for elbow washout. Due to medical necessity of the washout to avoid joint destruction and worsening sepsis status, can proceed with surgerical intervention. Rocephin 2gm ordered for coverage of septic joint
[2018-02-26] MEDS ORDERED: CEFTRIAXONE 2 GM in DEXTROSE 5%-WATER 100 ML IVPB ONE (21:43)
[2018-02-26] MEDS ORDERED: LIDOCAINE PATCH REMOVAL MC SCH (22:00)
[2018-02-26] MEDS ORDERED: DOCUSATE SODIUM 100 MG CAPSULE (FP) PO SCH (22:00)
[2018-02-26] MEDS ORDERED: GABAPENTIN 300 MG CAPSULE (FP) PO SCH (22:00)
[2018-02-26] MEDS ORDERED: HEPARIN NA (PORCINE) 5,000 UNITS/ML 1ML VIAL SQ SCH (22:00)
[2018-02-26] MEDS ORDERED: BUDESONIDE/FORMETEROL FUMARATE 80/4.5 mcg INHALER IH SCH (22:00)
[2018-02-26] MEDS ORDERED: ATORVASTATIN CA 80 MG TABLET (FP) PO SCH (22:00)
[2018-02-26] MEDS ORDERED: CARVEDILOL 25 MG TABLET (FP) PO SCH ×2 (22:00)
[2018-02-26] MEDS ORDERED: AMITRIPTYLINE HCL 25 MG TABLET (FP) PO SCH (22:00)
[2018-02-26 22:06] LABS: SYNOVIAL FLUID LYMPHOCYTES 2 %; SYNOVIAL FLUID MACROPHAGES 3 %; SYNOVIAL FLUID NEUTROPHILS 95 %; SYNOVIAL FLUID SOURCE SYNOVIAL FLUID
[2018-02-26] MEDS ORDERED: ROPIVACAINE HCL 0.5% 30ML VIAL ONE (22:52)
[2018-02-26] MEDS ORDERED: SUCCINYLCHOLINE CHLORIDE 200 MG/10 ML VIAL ONE (22:59)
[2018-02-26] MEDS ORDERED: fentaNYL CITRATE 250 MCG/5 ML VIAL ONE (22:59)
[2018-02-26] MEDS ORDERED: MIDAZOLAM HCL 2 MG/2 ML SINGLE DOSE VIAL ONE ×2 (22:59→23:54)
[2018-02-26] MEDS ORDERED: GLYCOPYRROLATE 0.2 MG/1 ML VIAL ONE (23:39)
[2018-02-26] MEDS ORDERED: KETAMINE HCL 200 MG/20 ML VIAL ONE (23:39)
[2018-02-26] MEDS ORDERED: BUPIVACAINE HCL/PF 0.25% (2.5MG/ML) 10 ML VIAL ONE (23:41)
[2018-02-27] MEDS ORDERED: BUPIVACAINE HCL/PF 0.25% (2.5MG/ML) 10 ML VIAL IJ ONE ×2 (00:29)
[2018-02-27] MEDS ORDERED: ONDANSETRON 4 MG/2 ML VIAL ONE (00:42)
--- NOTE | 2018-02-27 01:16 | OPR ---
Operative Note: Date of procedure: 02/26/18 Procedure: Right elbow arthrotomy with irrigation and debridement Preop Diagnosis: Right elbow septic joint Post op Diagnosis: Right elbow septic joint Surgeon: Salazar Garner DO Tractor Engine Mechanic surgeon: Jg Giordano DO Anesthesia: Regional Drains: None Specimen: Synovial fluid right elbow; Culture right elbow x 2 Indications: Ms. Orantes presented to us with the above noted diagnoses. During the evaluation, Ms. Orantes was noted to have a swollen and extremely painful right elbow. An elbow arthrocentesis was performed which showed a cell count of over 92,000 and 95% PMN's. Because of this, and persistent right elbow pain, we scheduled Ms. Orantes for a right elbow irrigation and debridement. The patient elected to proceed with surgical intervention after discussion of the risks, benefits, alternatives. We discussed risks including but not limited to, bleeding, pain, infection, scarring, damage to neurovascular structures, blood clots, pulmonary embolism, need for additional surgery, incomplete relief of pain, and incomplete return of function. The patient expressed understanding and wished to proceed. Surgeon's Narrative: We took Ms. Orantes to the operating room where we positioned him in the supine position with the right arm abducted to 90 degrees on a hand table. The anesthesia service administered a regional block. We placed a tourniquet on the right upper arm. We prepped the right arm with choloraprep and draped it in the usual sterile fashion. We evaluated the right elbow. It was boggy. We identified the lateral epicondyle and radial head. We inflated the tourniqet to 275mmHg. The tourniquet was inflated for a total of 25 minutes. We made a 3 inch curvilinear incision just anterior to the lateral epicondyle to the radial head. We took care to be meticulous with hemostasis. We used Metzenbaum scissors to dissect down to the fascia overlying the extensor tendons. An incision was made through the EDC and the capsule was exposed. We incised through the capsule and a moderate amount of purulence was noted. We submitted the fluid for culture. We then gently irrigated the elbow with 3 liters of saline using cysto tubing. We took the right elbow through passive range of motion and noted some residual purulence. We further irrigated with another 6 liters. We did this sequentially until we saw no further purulence. We used a total of 9 liters of saline. With this done, we loosely closed the deep fascia with 2-0 PDS and the skin with mattress 3-0 nylon sutures. We deflated the torniquet. There was some but not excessive bleeding. Hemostasis was achieved. We dressed the right elbow with xeroform, 4x4's, and kerlex dressing. The patient tolerated the surgery well. Dr. Jg Giordano DO acted as clerical administrative assistant. There was no qualified resident or physician clothing sales assistant available for the case. Post op instructions: - WBAT - ID Consult - Continue with Antibiotics. Further abx as per ID - DVT Prophylaxis (heparin/early ambulation) - Dressing change POD 2 - Appreciate Rheumatology consult - Appreciate medical management - Trend WBC, CRP - Suture removal in 2 weeks - Follow up OR Cultures x 2 and OR Synovial fluid culture x 1 (Cell count, crystals, culture, gram stain) - Will follow.
[2018-02-27] MEDS ORDERED: ACETAMINOPHEN 325 MG TABLET (FP) PO PRN (01:25)
[2018-02-27] MEDS ORDERED: CEFTRIAXONE 2 GM in DEXTROSE 5%-WATER 100 ML IVPB ONE (01:25)
[2018-02-27] MEDS ORDERED: PATIENT'S OWN MEDICATION (NON-FORMULARY) (Dulaglutide [Trulicity] 1.5 MG) SQ SCH (01:25)
[2018-02-27] MEDS ORDERED: SODIUM CHLORIDE 1,000 ML IV SCH (01:30)
[2018-02-27] MEDS ORDERED: ACETAMINOPHEN 1000 MG/100 ML VIAL (NON FORMULARY) IVPB ONE (01:32)
[2018-02-27] MEDS ORDERED: ACETAMINOPHEN INJECTION 100 ML IVPB ONE (02:13)
[2018-02-27 02:25] LABS: SYNOVIAL FLUID RBC 17574 /mm3; SYNOVIAL FLUID SOURCE RIGHT ELBOW
[2018-02-27] MEDS: INSULIN SLIDING SCALE (NOVOLOG) 1 VIAL SQ SCH ×5 (03:00→22:43)
[2018-02-27 04:08] LABS: SYNOVIAL FLUID LYMPHOCYTES 5 %; SYNOVIAL FLUID MACROPHAGES 1 %; SYNOVIAL FLUID MONOCYTES 3 %; SYNOVIAL FLUID NEUTROPHILS 92 %
[2018-02-27] MEDS ORDERED: PT OWN MED DRAWER 7, Y5N ONE (06:49)
[2018-02-27] MEDS: DOCUSATE SODIUM 100 MG CAPSULE (FP) PO SCH ×3 (06:54→22:25)
[2018-02-27 07:18] LABS: BASO % 0.3 % (0-2.0); EOS % 0.9 % (0-4.5); HEMOGLOBIN 8.4 GM/dL (10.7-15.3); LYMPH % 12.8 % (8-40); MCH 21.5 pg (25.7-33.7); MCHC 32.1 g/dl (32.0-36.0); MEAN CELL VOLUME 67.1 fl (80-96); MEAN PLT VOLUME 9.4 fl (7.5-11.1); MONO % 11.2 % (3.8-10.2); NEUT % 74.8 % (42.8-82.8); PLATELET COUNT 249 K/MM3 (134-434); RBC 3.88 M/mm3 (3.60-5.2); RDW 21.3 % (11.6-15.6); WHITE BLOOD COUNT 13.8 K/mm3 (4.0-10.0)
[2018-02-27 08:00] LABS: ALBUMIN 2.1 g/dl (3.4-5.0); ALK PHOS 107 U/L (45-117); ANION GAP 10 MMOL/L (8-16); BILIRUBIN,TOTAL 0.6 mg/dL (0.2-1); BLOOD UREA NITROGEN 43 mg/dL (7-18); CALCIUM 8.8 mg/dL (8.5-10.1); CHLORIDE 96 mmol/L (98-107); CO2 29 mmol/L (21-32); CREATININE 1.7 mg/dL (0.55-1.3); GLUCOSE,RANDOM 80 mg/dL (74-106); MAGNESIUM 2.3 mg/dL (1.8-2.4); PHOSPHOROUS 6.2 mg/dL (2.5-4.9); POTASSIUM 3.8 mmol/L (3.5-5.1); SGOT/AST 20 U/L (15-37); SGPT/ALT 17 U/L (13-61); SODIUM 135 mmol/L (136-145); TOT PROT 6.7 g/dl (6.4-8.2)
[2018-02-27] MEDS ORDERED: CEFAZOLIN 3 GM in DEXTROSE 5%-WATER - 100 ML IVPB ONE (08:00)
[2018-02-27] MEDS ORDERED: ASPIRIN 81 MG CHEWABLE TABLETS PO SCH (10:00)
[2018-02-27] MEDS: ASPIRIN 81 MG CHEWABLE TABLETS PO SCH (10:00)
[2018-02-27] MEDS ORDERED: LOSARTAN POTASSIUM 25 MG TABLET PO SCH (10:00)
[2018-02-27] MEDS ORDERED: TIOTROPIUM BROMIDE 2.5 MCG (SPIRIVA) RESPIMAT INHALER IH SCH (10:00)
[2018-02-27] MEDS ORDERED: SPIRONOLACTONE 25 MG TABLET (FP) PO SCH (10:00)
[2018-02-27] MEDS: CARVEDILOL 12.5 MG TABLET (FP) PO SCH ×2 (10:00→22:25)
[2018-02-27] MEDS ORDERED: CALCIUM 500MG/VIT-D 200 UNITS COMBO TABLET (FP) PO SCH (10:00)
[2018-02-27] MEDS: CALCIUM 500MG/VIT-D 200 UNITS COMBO TABLET (FP) PO SCH (10:01)
[2018-02-27] MEDS: LIDOCAINE 5% TOPICAL PATCH TP SCH (10:01)
[2018-02-27] MEDS: BUDESONIDE/FORMETEROL FUMARATE 80/4.5 mcg INHALER IH SCH ×2 (10:03→22:38)
[2018-02-27] MEDS: TIOTROPIUM BROMIDE 2.5 MCG (SPIRIVA) RESPIMAT INHALER IH SCH (10:03)
[2018-02-27] MEDS ORDERED: predniSONE 20 MG TABLET (UD) PO SCH (10:21)
[2018-02-27] MEDS: traMADol HCL 50 MG TABLET PO PRN ×2 (10:23→22:32)
--- NOTE | 2018-02-27 10:57 | CON.ID ---
Consult Consult Specialty:: infectious disease Referred by:: hospitalist Reason for Consultation:: r/o septic arthritis - History of Present Illness Chief Complaint: right elbow pain History of Present Illness: 52 yo femalewith pmh dm, chf (ICD), copd admitted with severe right elbow pain for one day, also with left ankle pain and swelling no fevers elbow was tapped and she was taken to OR last night for drainage and lavage uric acid elevated but no prior history of gout +crystals on gram stain denies fevers at home no trauma seen by ortho and rheumatology - History Source History Provided By: Medical Record Limitations to Obtaining History: Clinical Condition - Past Medical History Cardio/Vascular: Yes: CHF, HTN, Hyperlipdemia Pulmonary: Yes: COPD Musculoskeletal: Yes: Chronic low back pain Endocrine: Yes: Diabetes Mellitus - Past Surgical History Past Surgical History: Yes: AICD, Cataract Removal Additional Surgical History: carpal tunnel - Alcohol/Substance Use Hx Alcohol Use: Yes (stopped 7 momths ago) - Smoking History Smoking history: Former smoker Have you smoked in the past 12 months: Yes If you are a former smoker, when did you quit?: 7 months ago - Social History Usual Living Arrangement: With Child ADL: Independent History of Recent Travel: No Home Medications - Allergies Allergies/Adverse Reactions: Allergies Allergy/AdvReac Type Severity Reaction Status Date / Time canagliflozin [From Invokana] Allergy Verified 02/26/18 12:22 - Home Medications Home Medications: Ambulatory Orders Acetaminophen 650 mg PO Q4H PRN 02/26/18 Amitriptyline HCl 25 mg PO HS 02/26/18 Aspirin 81 mg PO DAILY 02/26/18 Atorvastatin Ca [Lipitor] 80 mg PO HS 02/26/18 Bisacodyl Suppository [Dulcolax Suppository -] 10 mg RC DAILY 02/26/18 Budesonide/Formeterol Fumarate [SYMBICORT 80/4.5mcg -] 2 inh PO BID 02/26/18 Calcium Carb, Cit/Mag Cit, Gly [Localnesium Tablet] 600 mg PO DAILY 02/26/18 Carvedilol 37.5 mg PO BID 02/26/18 Docusate Sodium 100 mg PO TID 02/26/18 Dulaglutide [Trulicity] 1.5 mg SQ WEEKLY 02/26/18 Gabapentin 300 mg PO HS 02/26/18 Insulin Degludec [Tresiba Flextouch U-200] 98 unit SQ DAILY 02/26/18 Lidocaine 5% Patch [Lidoderm Patch -] 1 patch TP DAILY 02/26/18 Losartan Potassium 25 mg PO DAILY 02/26/18 Spironolactone 25 mg PO DAILY 02/26/18 Tiotropium Marissa [Spiriva] 1 inh PO DAILY 02/26/18 Torsemide 40 mg PO HS 02/26/18 Torsemide 80 mg PO DAILY 02/26/18 Tramadol HCl 100 mg PO Q12H PRN 02/26/18 Family Disease History - Family Disease History Family History: Unable to Obtain Review of Systems Unable to obtain ROS, reason: limited by lethargy - Review of Systems Constitutional: reports: No Symptoms. denies: Chills, Fever Physical Exam Vital Signs: Vital Signs Temperature 98.2 F 02/27/18 06:00 Pulse Rate 87 02/27/18 06:00 Respiratory Rate 22 H 02/27/18 06:00 Blood Pressure 128/47 L 02/27/18 06:00 O2 Sat by Pulse Oximetry (%) 100 02/27/18 03:57 Constitutional: Yes: No Distress, Calm, Obese Eyes: Yes: Conjunctiva Clear, EOM Intact HENT: Yes: Atraumatic, Normocephalic Neck: Yes: Supple Cardiovascular: Yes: Regular Rate and Rhythm Respiratory: Yes: Regular, Diminished Gastrointestinal: Yes: Normal Bowel Sounds, Soft Extremities: Yes: Other (left ankle swelling dressing right elbow) Psychiatric: Yes: Alert, Oriented Labs: CBC, BMP 02/27/18 06:00 02/27/18 06:00 Microbiology 02/26/18 18:52 Synovial Fluid - Elbow Gram Stain - Preliminary Problem List - Problems (1) Acute gouty arthritis Code(s): M10.9 - GOUT, UNSPECIFIED (2) Diabetes Code(s): E11.9 - TYPE 2 DIABETES MELLITUS WITHOUT COMPLICATIONS Assessment/Plan most consistent with acute gouty arthritis, elevated uric acid and positive crystals, negative gram stain for organisms but will cover with rocephin to cover for secondary infection until cultures are back no objection to steroids she should be evaluated for DINA
[2018-02-27] MEDS: predniSONE 20 MG TABLET (UD) PO SCH (11:07)
--- NOTE | 2018-02-27 11:26 | EKG ---
Test Reason : Blood Pressure : / mmHG Vent. Rate : 092 BPM Atrial Rate : 092 BPM P-R Int : 172 ms QRS Dur : 108 ms QT Int : 416 ms P-R-T Axes : 051 015 062 degrees QTc Int : 514 ms NORMAL SINUS RHYTHM INCOMPLETE LEFT BUNDLE BRANCH BLOCK PROLONGED QT ABNORMAL ECG WHEN COMPARED WITH ECG OF 26-FEB-2018 22:59, NO SIGNIFICANT CHANGE WAS FOUND Confirmed by PEDRO KING, PHANI ([id number]) on 02/27/2018 11:25:40 AM Referred By: Confirmed By:PHANI VASQUEZ MD
--- NOTE | 2018-02-27 11:26 | EKG ---
Test Reason : Blood Pressure : / mmHG Vent. Rate : 092 BPM Atrial Rate : 092 BPM P-R Int : 172 ms QRS Dur : 106 ms QT Int : 404 ms P-R-T Axes : 058 -11 051 degrees QTc Int : 499 ms NORMAL SINUS RHYTHM INCOMPLETE LEFT BUNDLE BRANCH BLOCK PROLONGED QT ABNORMAL ECG NO PREVIOUS ECGS AVAILABLE Confirmed by PHANI VASQUEZ MD ([id number]) on 02/27/2018 11:25:52 AM Referred By: Confirmed By:PHANI VASQUEZ MD
[2018-02-27] MEDS ORDERED: CEFTRIAXONE 2 GM in DEXTROSE 5%-WATER - 50 ML IVPB SCH (11:30)
--- NOTE | 2018-02-27 13:59 | PN ---
Physical Exam: SUBJECTIVE: Patient seen and examined this AM. She is very tired, but states that she feels much better than yesterday. Today able to palpate left arm where unable with very heightened pain response yesterday. OBJECTIVE: Vital Signs Period Temp Pulse Resp BP Sys/Bowen Pulse Ox Last 24 Hr 97.6 F-98.6 F 82-96 12-22 100-145/47-82 98-100 GENERAL: Alert (though tired from minimal sleep last night) and oriented. HEAD: Normocephalic, atraumatic. EYES: PERRL, no scleral icterus EARS, NOSE, THROAT: oropharynx clear without exudates. Dry mucous membranes. NECK: supple without lymphadenopathy LUNGS: Mild wheezes noted, decreased breath sounds diffusely HEART: Regular rate and rhythm, normal S1 and S2 without murmur ABDOMEN: Soft, morbidly obese, nontender to palpation, normoactive bowel sounds MUSCULOSKELETAL: Dressing clean and dry. Right arm in sling. Left ankle with erythema and swelling. EXTREMITIES: 2+ pulses, warm, well-perfused. No peripheral edema. NEUROLOGICAL: Cranial nerves II-XII grossly intact. Normal speech. PSYCHIATRIC: Cooperative. Good eye contact. Heightened emotional response SKIN: Warm, dry, no rashes or lesions noted Laboratory Results - last 24 hr 02/26/18 02/26/18 02/26/18 13:05 13:06 13:06 WBC RBC Hgb Hct MCV MCH MCHC RDW Plt Count MPV Absolute Neuts (auto) Neutrophils % Lymphocytes % Monocytes % Eosinophils % Basophils % Nucleated RBC % Hypochromia 1+ Platelet Estimate Normal Polychromasia 0 Poikilocytosis 0 Anisocytosis 2+ Microcytosis 2+ Macrocytosis 0 Target Cells 1+ ESR 109 H PT with INR INR PTT (Actin FS) Sodium 132 L Potassium 4.3 Chloride 92 L Carbon Dioxide 30 Anion Gap 9 BUN 44 H Creatinine 1.7 H Creat Clearance w eGFR 31.69 POC Glucometer Random Glucose 155 H Uric Acid Calcium 9.4 Phosphorus Magnesium Total Bilirubin 0.6 AST 26 ALT 25 Alkaline Phosphatase 133 H C-Reactive Protein 35.4 H Total Protein 8.1 Albumin 2.6 L Urine Color Urine Appearance Urine pH Ur Specific [place] Urine Protein Urine Glucose (UA) Urine Ketones Urine Blood Urine Nitrite Urine Bilirubin Urine Urobilinogen Ur Leukocyte Esterase Urine WBC (Auto) Urine RBC (Auto) Urine Bacteria Synovial Source Synovial WBC Synovial RBC Synovial Neutrophils Synovial Lymphocytes Synovial Monocytes Synovial Macrophages Synovial Crystals 02/26/18 02/26/18 02/26/18 13:06 17:50 18:52 WBC RBC Hgb Hct MCV MCH MCHC RDW Plt Count MPV Absolute Neuts (auto) Neutrophils % Lymphocytes % Monocytes % Eosinophils % Basophils % Nucleated RBC % Hypochromia Platelet Estimate Polychromasia Poikilocytosis Anisocytosis Microcytosis Macrocytosis Target Cells ESR PT with INR INR PTT (Actin FS) Sodium Potassium Chloride Carbon Dioxide Anion Gap BUN Creatinine Creat Clearance w eGFR POC Glucometer Random Glucose Uric Acid 16.1 H* Calcium Phosphorus Magnesium Total Bilirubin AST ALT Alkaline Phosphatase C-Reactive Protein Total Protein Albumin Urine Color Yellow Urine Appearance Cloudy Urine pH 5.5 Ur Specific [place] 1.015 Urine Protein 1+ H Urine Glucose (UA) Negative Urine Ketones Negative Urine Blood 2+ H Urine Nitrite Negative Urine Bilirubin Negative Urine Urobilinogen 0.2 Ur Leukocyte Esterase 3+ H Urine WBC (Auto) 728 Urine RBC (Auto) None Urine Bacteria Many Synovial Source Synovial fluid Synovial WBC 23453 Synovial RBC 4886 Synovial Neutrophils 95 Synovial Lymphocytes 2 Synovial Monocytes Synovial Macrophages 3 Synovial Crystals 02/26/18 02/26/18 02/26/18 18:52 20:37 22:48 WBC RBC Hgb Hct MCV MCH MCHC RDW Plt Count MPV Absolute Neuts (auto) Neutrophils % Lymphocytes % Monocytes % Eosinophils % Basophils % Nucleated RBC % Hypochromia Platelet Estimate Polychromasia Poikilocytosis Anisocytosis Microcytosis Macrocytosis Target Cells ESR PT with INR 15.30 H INR 1.29 H PTT (Actin FS) 32.6 Sodium Potassium Chloride Carbon Dioxide Anion Gap BUN Creatinine Creat Clearance w eGFR POC Glucometer 114 Random Glucose Uric Acid Calcium Phosphorus Magnesium Total Bilirubin AST ALT Alkaline Phosphatase C-Reactive Protein Total Protein Albumin Urine Color Urine Appearance Urine pH Ur Specific [place] Urine Protein Urine Glucose (UA) Urine Ketones Urine Blood Urine Nitrite Urine Bilirubin Urine Urobilinogen Ur Leukocyte Esterase Urine WBC (Auto) Urine RBC (Auto) Urine Bacteria Synovial Source Synovial WBC Synovial RBC Synovial Neutrophils Synovial Lymphocytes Synovial Monocytes Synovial Macrophages Synovial Crystals Positive 02/27/18 02/27/18 02/27/18 01:00 02:03 06:00 WBC 13.8 H RBC 3.88 Hgb 8.4 L Hct 26.0 L MCV 67.1 L MCH 21.5 L MCHC 32.1 RDW 21.3 H Plt Count 249 MPV 9.4 Absolute Neuts (auto) 10.3 H Neutrophils % 74.8 Lymphocytes % 12.8 D Monocytes % 11.2 H Eosinophils % 0.9 D Basophils % 0.3 Nucleated RBC % 0 Hypochromia Platelet Estimate Polychromasia Poikilocytosis Anisocytosis Microcytosis Macrocytosis Target Cells ESR PT with INR INR PTT (Actin FS) Sodium Potassium Chloride Carbon Dioxide Anion Gap BUN Creatinine Creat Clearance w eGFR POC Glucometer 109 Random Glucose Uric Acid Calcium Phosphorus Magnesium Total Bilirubin AST ALT Alkaline Phosphatase C-Reactive Protein Total Protein Albumin Urine Color Urine Appearance Urine pH Ur Specific [place] Urine Protein Urine Glucose (UA) Urine Ketones Urine Blood Urine Nitrite Urine Bilirubin Urine Urobilinogen Ur Leukocyte Esterase Urine WBC (Auto) Urine RBC (Auto) Urine Bacteria Synovial Source Right elbow Synovial WBC 55319 Synovial RBC 21111 Synovial Neutrophils 92 Synovial Lymphocytes 5 Synovial Monocytes 3 Synovial Macrophages 1 Synovial Crystals 02/27/18 02/27/18 02/27/18 06:00 06:54 11:11 WBC RBC Hgb Hct MCV MCH MCHC RDW Plt Count MPV Absolute Neuts (auto) Neutrophils % Lymphocytes % Monocytes % Eosinophils % Basophils % Nucleated RBC % Hypochromia Platelet Estimate Polychromasia Poikilocytosis Anisocytosis Microcytosis Macrocytosis Target Cells ESR PT with INR INR PTT (Actin FS) Sodium 135 L Potassium 3.8 Chloride 96 L Carbon Dioxide 29 Anion Gap 10 BUN 43 H Creatinine 1.7 H Creat Clearance w eGFR 31.69 POC Glucometer 129 235 Random Glucose 80 Uric Acid Calcium 8.8 Phosphorus 6.2 H Magnesium 2.3 Total Bilirubin 0.6 AST 20 ALT 17 Alkaline Phosphatase 107 C-Reactive Protein 31.1 H Total Protein 6.7 Albumin 2.1 L Urine Color Urine Appearance Urine pH Ur Specific [place] Urine Protein Urine Glucose (UA) Urine Ketones Urine Blood Urine Nitrite Urine Bilirubin Urine Urobilinogen Ur Leukocyte Esterase Urine WBC (Auto) Urine RBC (Auto) Urine Bacteria Synovial Source Synovial WBC Synovial RBC Synovial Neutrophils Synovial Lymphocytes Synovial Monocytes Synovial Macrophages Synovial Crystals Active Medications Generic Name Dose Route Start Last Admin Trade Name Freq PRN Reason Stop Dose Admin Acetaminophen 650 mg 02/27/18 01:25 Tylenol - PO Q4H PRN PAIN LEVEL 1-5 Amitriptyline HCl 25 mg 02/27/18 22:00 Elavil - PO HS [facility] Aspirin 81 mg 02/27/18 10:00 02/27/18 10:00 Asa - PO 81 mg DAILY [facility] Administration Atorvastatin Calcium 80 mg 02/27/18 22:00 Lipitor - PO HS [facility] Budesonide/Formoterol Fumarate 2 puff 02/27/18 10:00 02/27/18 10:03 Symbicort 80/4.5mcg - IH 2 puff BID [facility] Administration Calcium Carbonate/Cholecalciferol 1 tab 02/27/18 10:00 02/27/18 10:01 Os-Lito 500+D - PO 1 tab DAILY [facility] Administration Carvedilol 37.5 mg 02/27/18 10:00 02/27/18 10:00 Coreg - PO 37.5 mg BID [facility] Administration Docusate Sodium 100 mg 02/27/18 06:00 02/27/18 06:54 Colace - PO Not Given TID [facility] Gabapentin 300 mg 02/27/18 22:00 Neurontin - PO HS [facility] Heparin Sodium (Porcine) 5,000 unit 02/27/18 06:00 Heparin - SQ TID [facility] Ceftriaxone Sodium 2 gm/ 50 mls @ 100 mls/hr 02/27/18 11:30 Dextrose IVPB DAILY [facility] Protocol Insulin Aspart 1 vial 02/27/18 07:00 02/27/18 11:12 Novolog Vial Sliding Scale - SQ 4 units ACHS [facility] Administration Protocol Lidocaine 1 patch 02/27/18 10:00 02/27/18 10:01 Lidoderm Patch - TP 1 patch DAILY [facility] Administration Miscellaneous 1 each 02/27/18 22:00 Lidoderm Patch Removal DAILY@2200 [facility] Non-Formulary Medication 1.5 mg 02/27/18 01:25 Dulaglutide [Trulicity] SQ WEEKLY [facility] Prednisone 40 mg 02/27/18 11:00 02/27/18 11:07 Deltasone - PO 03/01/18 10:01 40 mg DAILY [facility] Administration Prednisone 20 mg 03/02/18 10:00 Deltasone - PO 03/04/18 10:01 DAILY [facility] Prednisone 10 mg 03/05/18 10:00 Deltasone - PO 03/07/18 10:01 DAILY [facility] Prednisone 5 mg 03/08/18 10:00 Deltasone - PO 03/10/18 10:01 DAILY [facility] Tiotropium [place] 2 puff 02/27/18 10:00 02/27/18 10:03 Spiriva Respimat IH 2 puff DAILY [facility] Administration Tramadol HCl 50 mg 02/27/18 01:25 02/27/18 10:23 Ultram - PO 50 mg Q6H PRN Administration PAIN LEVEL 6-10 ASSESSMENT/PLAN: 52 yo F with PMH HTN, COPD (2L home O2), Systolic CHF (ICD in place), IDDM with peripheral neuropathy, RA, OA, and sciatica admitted with severe pain in her right elbow that began one day ago but was severely worse on waking up this AM. Right Elbow and Left Ankle Pain -Gram stain negative, crystals positive in synovial fluid -ESR, CRP elevated -Uric acid 16.1 -Xray noted -Ortho and Rheumatology both consulted -s/p OR washout of joint secondary to very high WBC count in initial tap -Prednisone taper begun today, will add allopurinol in a couple days to overlap with the end of the prednisone taper -Avoid NSAIDs with current renal function and unknown renal history -Pain greatly improved today from yesterday Elevated BUN/Cr -Pt states that her BUN/Cr are monitored by her concrete floater as she is on multiple diuretics -She does not however endorse knowing if the numbers were ever elevated -Currently 43/1.7, stable from yesterday -Trend BMP -Encouraged PO intake COPD -Requires 2L of home O2 -Stable, not in acute exacerbation -Continue home regimen Systolic CHF -Currently stable with no signs of acute fluid overload -Case discussed with PCP who states echo which revealed EF of 30-35% -Pt with known AICD in place -Hold fluids for now, but with elevated BUN/Cr and clinically dry, encouraged pt for PO intake IDDM -BGMs ACHS -Insulin Sliding scale for glycemic control Sciatica/OA/RA -Continue home pain regimen, verified with pharmacy DVT Prophylaxis -Heparin 5000 units SQ TID FEN -Fluids: NONE -Electrolytes: No electrolyte abnormalities, BMP in AM -Nutrition: Diabetic Na Controlled Diet Disposition Med/Surg Visit type - Emergency Visit Emergency Visit: Yes ED Registration Date: 02/26/18 Care time: The patient presented to the Emergency Department on the above date and was hospitalized for further evaluation of their emergent condition. - New Patient This patient is new to me today: No - Critical Care Critical Care patient: No
[2018-02-27 14:23] LABS: CRYSTALS,SYNOVIAL FLUID POSITIVE
--- NOTE | 2018-02-27 15:45 | PN ---
Progress Note (short form) - Note Progress Note: ORTHOPEDIC SURGERY PROGRESS NOTE Department of Orthopedic Surgery SUBJECTIVE No acute events overnight. No complaints currently. Denies chest pain, shortness of breath, or calf pain. No nausea or vomiting. Tolerating oral intake. Pain control difficult overnight, but improving. PHYSICAL EXAMINATION General: Alert, oriented, cooperative and no distress. Right Upper Extremity: Elbow Dressing ntact; No Drainage. Muscle mass equal and symmetric to contralateral side. No atrophy noted. No masses or effusions noted. No tenderness to palpation. Increased and improved active ROM, free from pain from 20-100 degrees. M/R/U/MSK/AX motor intact; SILT distally; 2+ radial pulses; Cap refill brisk. Right Lower Extremity: Left ankle mild swelling medial and lateral malleolus. Skin intact, no lesions, rashes or ulcers noted. Muscle mass equal and symmetric to contralateral side. No atrophy noted. No masses or effusions noted. Mild tenderness to palpation of medial and lateral malleoli; Limited passive and active ROM secondary to mild swelling, and free from pain. EHL/TA/ GS motor intact; SILT distally; 2+ DP pulses; Cap refill brisk. Intake & Output 02/25/18 02/26/18 02/27/18 23:59 23:59 23:59 Intake Total 700 1250 Output Total 100 100 Balance 600 1150 Intake: IV 700 500 Normal Saline - 1,000 ml 325 @ 75 mls/hr IV ASDIR [facility] Rx#:[id number] IVPB 100 Oral 650 Output: Urine 100 100 Other: Voiding Method Indwelling Catheter Indwelling Catheter Weight 390 lb Height 5 ft 3 in Body Mass Index (BMI) 69.0 Weight Measurement Method Est/Stated by Patient Active Medications Generic Name Dose Route Start Last Admin Trade Name Freq PRN Reason Stop Dose Admin Acetaminophen 650 mg 02/27/18 01:25 Tylenol - PO Q4H PRN PAIN LEVEL 1-5 Amitriptyline HCl 25 mg 02/27/18 22:00 Elavil - PO HS [facility] Aspirin 81 mg 02/27/18 10:00 02/27/18 10:00 Asa - PO 81 mg DAILY [facility] Administration Atorvastatin Calcium 80 mg 02/27/18 22:00 Lipitor - PO HS [facility] Budesonide/Formoterol Fumarate 2 puff 02/27/18 10:00 02/27/18 10:03 Symbicort 80/4.5mcg - IH 2 puff BID [facility] Administration Calcium Carbonate/Cholecalciferol 1 tab 02/27/18 10:00 02/27/18 10:01 Os-Lito 500+D - PO 1 tab DAILY [facility] Administration Carvedilol 37.5 mg 02/27/18 10:00 02/27/18 10:00 Coreg - PO 37.5 mg BID [facility] Administration Docusate Sodium 100 mg 02/27/18 06:00 02/27/18 15:22 Colace - PO 100 mg TID [facility] Administration Gabapentin 300 mg 02/27/18 22:00 Neurontin - PO HS [facility] Heparin Sodium (Porcine) 5,000 unit 02/27/18 06:00 Heparin - SQ TID [facility] Ceftriaxone Sodium 2 gm/ 50 mls @ 100 mls/hr 02/27/18 11:30 Dextrose IVPB DAILY [facility] Protocol Insulin Aspart 1 vial 02/27/18 07:00 02/27/18 11:12 Novolog Vial Sliding Scale - SQ 4 units ACHS [facility] Administration Protocol Lidocaine 1 patch 02/27/18 10:00 02/27/18 10:01 Lidoderm Patch - TP 1 patch DAILY [facility] Administration Miscellaneous 1 each 02/27/18 22:00 Lidoderm Patch Removal MC DAILY@2200 [facility] Non-Formulary Medication 1.5 mg 02/27/18 01:25 Dulaglutide [Trulicity] SQ WEEKLY [facility] Prednisone 40 mg 02/27/18 11:00 02/27/18 11:07 Deltasone - PO 03/01/18 10:01 40 mg DAILY [facility] Administration Prednisone 20 mg 03/02/18 10:00 Deltasone - PO 03/04/18 10:01 DAILY [facility] Prednisone 10 mg 03/05/18 10:00 Deltasone - PO 03/07/18 10:01 DAILY [facility] Prednisone 5 mg 03/08/18 10:00 Deltasone - PO 03/10/18 10:01 DAILY [facility] Tiotropium [place] 2 puff 02/27/18 10:00 02/27/18 10:03 Spiriva Respimat IH 2 puff DAILY [facility] Administration Tramadol HCl 50 mg 02/27/18 01:25 02/27/18 10:23 Ultram - PO 50 mg Q6H PRN Administration PAIN LEVEL 6-10 Vital Signs (last) Temp Pulse Resp BP Pulse Ox 98.3 F 92 H 20 150/79 99 02/27/18 15:23 02/27/18 15:23 02/27/18 15:23 02/27/18 15:23 02/27/18 09:35 Laboratory (coagulation) PT with INR 15.30 SEC (9.7-13.0) H 02/26/18 20:37 Laboratory 02/27/18 06:00 02/27/18 06:00 IMAGING Radiographs: AP and Lateral views of the left ankle were reviewed by me today. They demonstrate no fractures, dislocations, subluxations, or bony lesions. There are signs of soft tissue swelling. ASSESSMENT AND PLAN Ms. Orantes is a 52 F s/p R elbow irrigation and debridement. POD 1 - Pain control: Transition to oral pain medications, minimize narcotic use - DVT prophylaxis - Ice/Elevation RUE in sling - Left ankle x-rays negative. Elevate/Ice left ankle. - Elevate HOB, encourage oral intake - Appreciate medical rheumatology, and ID management (Abx, Steroids, Nutrition optimization, decubitus precautions heel/sacrum) - PT/OT; WBAT LLE, Increase ROM of Right elbow. - Follow up dopplers b/l LE - Will follow
--- NOTE | 2018-02-27 16:17 | PN ---
Teaching Attending Note Name of Resident: Darrius Davis ATTENDING PHYSICIAN STATEMENT I saw and evaluated the patient. I reviewed the resident's note and discussed the case with the resident. I agree with the resident's findings and plan as documented with exceptions below. SUBJECTIVE: Patient seen and examined. right elbow pain improved. Left leg pain improved. Feels better. OBJECTIVE: Vital Signs Period Temp Pulse Resp BP Sys/Bowen Pulse Ox Last 24 Hr 97.6 F-98.6 F 85-96 12-22 100-151/47-86 98-100 Intake & Output 02/24/18 02/25/18 02/26/18 02/27/18 23:59 23:59 23:59 23:59 Intake Total 700 1250 Output Total 100 1100 Balance 600 150 Weight 390 lb General: lying in bed comfortably Chest: no rales or wheezing Extremities: right elbow sling/dressing, able to move fingers and wrist better without pain, LLE edema, non tender, no erythema or tenderness noted Abdomen;Soft, obese, NT Home Medications Medication Instructions Recorded Amitriptyline HCl 25 mg PO HS 02/26/18 Aspirin 81 mg PO DAILY 02/26/18 Atorvastatin Ca [Lipitor] 80 mg PO HS 02/26/18 Budesonide/Formeterol Fumarate 2 inh PO BID 02/26/18 [SYMBICORT 80/4.5mcg -] Carvedilol 25 mg PO BID 02/26/18 Dulaglutide [Trulicity] 1.5 mg SQ WEEKLY 02/26/18 Gabapentin 300 mg PO HS 02/26/18 Insulin Degludec [Tresiba 98 unit SQ DAILY 02/26/18 Flextouch U-200] Losartan Potassium 25 mg PO DAILY 02/26/18 Spironolactone 25 mg PO DAILY 02/26/18 Torsemide 20 mg PO QID 02/26/18 Tramadol HCl 50 mg PO DAILY PRN 02/26/18 Metformin HCl [Metformin HCl ER] 500 mg PO BID 02/27/18 Active Medications Acetaminophen (Tylenol -) 650 mg PO Q4H PRN PRN Reason: PAIN LEVEL 1-5 Amitriptyline HCl (Elavil -) 25 mg PO HS [facility] Aspirin (Asa -) 81 mg PO DAILY [facility] Last Admin: 02/27/18 10:00 Dose: 81 mg Atorvastatin Calcium (Lipitor -) 80 mg PO HS [facility] Budesonide/Formoterol Fumarate (Symbicort 80/4.5mcg -) 2 puff IH BID [facility] Last Admin: 02/27/18 10:03 Dose: 2 puff Calcium Carbonate/Cholecalciferol (Os-Lito 500+D -) 1 tab PO DAILY [facility] Last Admin: 02/27/18 10:01 Dose: 1 tab Carvedilol (Coreg -) 37.5 mg PO BID [facility] Last Admin: 02/27/18 10:00 Dose: 37.5 mg Docusate Sodium (Colace -) 100 mg PO TID [facility] Last Admin: 02/27/18 15:22 Dose: 100 mg Gabapentin (Neurontin -) 300 mg PO HS [facility] Heparin Sodium (Porcine) (Heparin -) 5,000 unit SQ TID [facility] Ceftriaxone Sodium 2 gm/ (Dextrose) 50 mls @ 100 mls/hr IVPB DAILY [facility]; Protocol Insulin Aspart (Novolog Vial Sliding Scale -) 1 vial SQ ACHS [facility]; Protocol Last Admin: 02/27/18 16:46 Dose: 5 units Lidocaine (Lidoderm Patch -) 1 patch TP DAILY [facility] Last Admin: 02/27/18 10:01 Dose: 1 patch Miscellaneous (Lidoderm Patch Removal) 1 each MC DAILY@2200 [facility] Non-Formulary Medication (Dulaglutide [Trulicity]) 1.5 mg SQ WEEKLY [facility] Prednisone (Deltasone -) 40 mg PO DAILY [facility] Stop: 03/01/18 10:01 Last Admin: 02/27/18 11:07 Dose: 40 mg Prednisone (Deltasone -) 20 mg PO DAILY [facility] Stop: 03/04/18 10:01 Prednisone (Deltasone -) 10 mg PO DAILY [facility] Stop: 03/07/18 10:01 Prednisone (Deltasone -) 5 mg PO DAILY [facility] Stop: 03/10/18 10:01 Tiotropium [place] (Spiriva Respimat) 2 puff IH DAILY [facility] Last Admin: 02/27/18 10:03 Dose: 2 puff Torsemide (Demadex -) 20 mg PO QID [facility] Tramadol HCl (Ultram -) 50 mg PO Q6H PRN PRN Reason: PAIN LEVEL 6-10 Last Admin: 02/27/18 10:23 Dose: 50 mg Laboratory Results - last 24 hr 02/26/18 02/26/18 02/26/18 17:50 18:52 18:52 WBC RBC Hgb Hct MCV MCH MCHC RDW Plt Count MPV Absolute Neuts (auto) Neutrophils % Lymphocytes % Monocytes % Eosinophils % Basophils % Nucleated RBC % PT with INR INR PTT (Actin FS) Sodium Potassium Chloride Carbon Dioxide Anion Gap BUN Creatinine Creat Clearance w eGFR POC Glucometer Random Glucose Calcium Phosphorus Magnesium Total Bilirubin AST ALT Alkaline Phosphatase C-Reactive Protein Total Protein Albumin Urine Color Yellow Urine Appearance Cloudy Urine pH 5.5 Ur Specific [place] 1.015 Urine Protein 1+ H Urine Glucose (UA) Negative Urine Ketones Negative Urine Blood 2+ H Urine Nitrite Negative Urine Bilirubin Negative Urine Urobilinogen 0.2 Ur Leukocyte Esterase 3+ H Urine WBC (Auto) 728 Urine RBC (Auto) None Urine Bacteria Many Synovial Source Synovial fluid Synovial WBC 82529 Synovial RBC 4886 Synovial Neutrophils 95 Synovial Lymphocytes 2 Synovial Monocytes Synovial Macrophages 3 Synovial Crystals Positive 02/26/18 02/26/18 02/27/18 20:37 22:48 01:00 WBC RBC Hgb Hct MCV MCH MCHC RDW Plt Count MPV Absolute Neuts (auto) Neutrophils % Lymphocytes % Monocytes % Eosinophils % Basophils % Nucleated RBC % PT with INR 15.30 H INR 1.29 H PTT (Actin FS) 32.6 Sodium Potassium Chloride Carbon Dioxide Anion Gap BUN Creatinine Creat Clearance w eGFR POC Glucometer 114 Random Glucose Calcium Phosphorus Magnesium Total Bilirubin AST ALT Alkaline Phosphatase C-Reactive Protein Total Protein Albumin Urine Color Urine Appearance Urine pH Ur Specific [place] Urine Protein Urine Glucose (UA) Urine Ketones Urine Blood Urine Nitrite Urine Bilirubin Urine Urobilinogen Ur Leukocyte Esterase Urine WBC (Auto) Urine RBC (Auto) Urine Bacteria Synovial Source Right elbow Synovial WBC 93499 Synovial RBC 60733 Synovial Neutrophils 92 Synovial Lymphocytes 5 Synovial Monocytes 3 Synovial Macrophages 1 Synovial Crystals Positive 02/27/18 02/27/18 02/27/18 02:03 06:00 06:00 WBC 13.8 H RBC 3.88 Hgb 8.4 L Hct 26.0 L MCV 67.1 L MCH 21.5 L MCHC 32.1 RDW 21.3 H Plt Count 249 MPV 9.4 Absolute Neuts (auto) 10.3 H Neutrophils % 74.8 Lymphocytes % 12.8 D Monocytes % 11.2 H Eosinophils % 0.9 D Basophils % 0.3 Nucleated RBC % 0 PT with INR INR PTT (Actin FS) Sodium 135 L Potassium 3.8 Chloride 96 L Carbon Dioxide 29 Anion Gap 10 BUN 43 H Creatinine 1.7 H Creat Clearance w eGFR 31.69 POC Glucometer 109 Random Glucose 80 Calcium 8.8 Phosphorus 6.2 H Magnesium 2.3 Total Bilirubin 0.6 AST 20 ALT 17 Alkaline Phosphatase 107 C-Reactive Protein 31.1 H Total Protein 6.7 Albumin 2.1 L Urine Color Urine Appearance Urine pH Ur Specific [place] Urine Protein Urine Glucose (UA) Urine Ketones Urine Blood Urine Nitrite Urine Bilirubin Urine Urobilinogen Ur Leukocyte Esterase Urine WBC (Auto) Urine RBC (Auto) Urine Bacteria Synovial Source Synovial WBC Synovial RBC Synovial Neutrophils Synovial Lymphocytes Synovial Monocytes Synovial Macrophages Synovial Crystals 02/27/18 02/27/18 06:54 11:11 WBC RBC Hgb Hct MCV MCH MCHC RDW Plt Count MPV Absolute Neuts (auto) Neutrophils % Lymphocytes % Monocytes % Eosinophils % Basophils % Nucleated RBC % PT with INR INR PTT (Actin FS) Sodium Potassium Chloride Carbon Dioxide Anion Gap BUN Creatinine Creat Clearance w eGFR POC Glucometer 129 235 Random Glucose Calcium Phosphorus Magnesium Total Bilirubin AST ALT Alkaline Phosphatase C-Reactive Protein Total Protein Albumin Urine Color Urine Appearance Urine pH Ur Specific [place] Urine Protein Urine Glucose (UA) Urine Ketones Urine Blood Urine Nitrite Urine Bilirubin Urine Urobilinogen Ur Leukocyte Esterase Urine WBC (Auto) Urine RBC (Auto) Urine Bacteria Synovial Source Synovial WBC Synovial RBC Synovial Neutrophils Synovial Lymphocytes Synovial Monocytes Synovial Macrophages Synovial Crystals Microbiology 02/27/18 01:00 Elbow - Right Gram Stain - Final 02/27/18 01:00 Elbow - Right Gram Stain - Final 02/26/18 18:52 Synovial Fluid - Elbow Gram Stain - Final 02/27/18 01:00 Synovial Fluid - Elbow Gram Stain - Final 02/26/18 13:03 Blood - Peripheral Venous Blood Culture - Preliminary NO GROWTH OBTAINED AFTER 24 HOURS, INCUBATION TO CONTINUE FOR 4 DAYS. 02/26/18 13:05 Blood - Peripheral Venous Blood Culture - Preliminary NO GROWTH OBTAINED AFTER 24 HOURS, INCUBATION TO CONTINUE FOR 4 DAYS. ASSESSMENT AND PLAN: 52 yf with pMHx of NICM, systolic HF, last EF 30-35% 1.5 years ago, S/p ICD 2004 , prior h/o etoh/cocaine use, HTN, morbid obesity, DINA on nightly CPAP, IDDM, HLD, LLE neuropathy with chronic pain, CKD (last cr 01/2018 1.6), ?rheumatoid arthritis, Osteoarthritis, admitted with right elbow and Left ankle pain/ limitation of movements. -Right elbow/left ankle pain likely acute gouty arthritis, r/o septic arthritis (low suspicion) -NICM, systolic HF, last EF 30-35% 1.5 years ago, S/p ICD 2004 -LLE swelling/erythema -IDDM -HTN -Morbid obesity -DINA on nightly CPAP -HLD -LLE neuropathy -CKD (last cr in 01/2018 1.6) -?Rheumatoid arthritis -Osteoarthritis -h/o ETOH/Cocaine use -COPD on 2L home oxygen Plan: Orthopedic/rheumatology consult. s/p Right elbow aspiration/washout Gm stain neg. positive crystals. hyperuricemia, all suggestive of gout. Started on prednisone. Discussed with Dr. Suarez, plan to start allopurinol at 100 mg daily in 3-4 days and overlap with steroids, will eventually need higher dose. Ceftriaxone day 1, follow up cultures. Not a candidate for NSAIDs/colchicine. Blood cx neg so far. LLE Duplex though low suspicion as symptoms improved. Resume ARB/Aldactone/torsemide Strict I/os and daily weights. ISS, diabetic diet. Nebs, home oxygen. Nightly CPAP TYlenol/tramadol for pain DVTPPX with heparin. Dispo pending clinical improvement. PT eval and CM consult for d/c planning in 24 hours. Plan discussed with patient in detail, all questions answered.
--- NOTE | 2018-02-27 16:31 | PN ---
Progress Note (short form) - Note Progress Note: S/P I&D Of right elbow uner MAC with a brachial plexus block uneventful.Patient stable.No any anesthesia related problem.Patient DC from the anesthesia care.
[2018-02-27] MEDS: TORSEMIDE 20 MG TABLET (FP) PO SCH ×2 (17:24→22:26)
[2018-02-27] MEDS ORDERED: LIDOCAINE PATCH REMOVAL MC SCH (22:00)
[2018-02-27] MEDS: HEPARIN NA (PORCINE) 5,000 UNITS/ML 1ML VIAL SQ SCH (22:26)
[2018-02-27] MEDS: AMITRIPTYLINE HCL 25 MG TABLET (FP) PO SCH (22:26)
[2018-02-27] MEDS: LIDOCAINE PATCH REMOVAL MC SCH (22:26)
[2018-02-27] MEDS: GABAPENTIN 300 MG CAPSULE (FP) PO SCH (22:27)
[2018-02-27] MEDS: ATORVASTATIN CA 80 MG TABLET (FP) PO SCH (22:27)
[2018-02-28] MEDS ORDERED: INSULIN (LEVEMIR) 100 UNITS/ML UNITS SQ ONE (01:48)
[2018-02-28] MEDS: INSULIN SLIDING SCALE (NOVOLOG) 1 VIAL SQ SCH ×4 (06:21→21:04)
[2018-02-28] MEDS: DOCUSATE SODIUM 100 MG CAPSULE (FP) PO SCH ×3 (06:22→21:03)
[2018-02-28] MEDS: HEPARIN NA (PORCINE) 5,000 UNITS/ML 1ML VIAL SQ SCH ×3 (06:22→21:04)
[2018-02-28 07:50] LABS: BASO % 0.3 % (0-2.0); HEMATOCRIT 27.2 % (32.4-45.2); HEMOGLOBIN 8.3 GM/dL (10.7-15.3); LYMPH % 10.3 % (8-40); MCH 20.6 pg (25.7-33.7); MCHC 30.5 g/dl (32.0-36.0); MEAN CELL VOLUME 67.5 fl (80-96); MEAN PLT VOLUME 9.1 fl (7.5-11.1); MONO % 7.1 % (3.8-10.2); NEUT % 82.3 % (42.8-82.8); PLATELET COUNT 272 K/MM3 (134-434); RBC 4.03 M/mm3 (3.60-5.2); RDW 21.4 % (11.6-15.6)
[2018-02-28 08:09] LABS: ANION GAP 8 MMOL/L (8-16); BLOOD UREA NITROGEN 40 mg/dL (7-18); CALCIUM 8.7 mg/dL (8.5-10.1); CHLORIDE 97 mmol/L (98-107); CO2 29 mmol/L (21-32); CREATININE 1.3 mg/dL (0.55-1.3); GLUCOSE,RANDOM 207 mg/dL (74-106); MAGNESIUM 2.2 mg/dL (1.8-2.4); PHOSPHOROUS 3.6 mg/dL (2.5-4.9); POTASSIUM 4.2 mmol/L (3.5-5.1); SODIUM 135 mmol/L (136-145)
--- NOTE | 2018-02-28 08:51 | PN ---
Progress Note (short form) - Note Progress Note: ORTHOPEDIC SURGERY PROGRESS NOTE Department of Orthopedic Surgery SUBJECTIVE No acute events overnight. No complaints currently. Denies chest pain, shortness of breath, or calf pain. No nausea or vomiting. Tolerating oral intake. Pain control improving. PHYSICAL EXAMINATION General: Alert, oriented, cooperative and no distress. Right Upper Extremity: Dressing intact and dry. Changed today. Sutures intact, no drainage from incision. Skin intact, no lesions, rashes or ulcers noted. Muscle mass equal and symmetric to contralateral side. No atrophy noted. No masses or effusions noted. No tenderness to palpation. Full passive and active ROM, free from pain. M/R/U/MSK/AX motor intact; SILT distally; 2+ radial pulses ; Cap refill brisk. Right Lower Extremity: Left ankle mild swelling medial and lateral malleolus, improved. Skin intact, no lesions, rashes or ulcers noted. Muscle mass equal and symmetric to contralateral side. No atrophy noted. No masses or effusions noted. Mild tenderness to palpation of medial and lateral malleoli; Limited passive and active ROM secondary to mild swelling, and free from pain. EHL/TA/ GS motor intact; SILT distally; 2+ DP pulses; Cap refill brisk. DVT Exam: No evidence of DVT seen on physical exam; No cords or calf tenderness ; Right ankle edema slightly improved. Intake & Output 02/26/18 02/27/18 02/28/18 23:59 23:59 23:59 Intake Total 700 1250 0 Output Total 100 1100 1900 Balance 600 150 -1900 Intake: IV 700 500 0 Normal Saline - 1,000 ml 325 @ 75 mls/hr IV ASDIR [facility] Rx#:[id number] sl 0 0 IVPB 100 Oral 650 Output: Urine 100 1100 1900 [place] 1000 1900 Other: Voiding Method Indwelling Catheter Indwelling Catheter Indwelling Catheter Weight 390 lb Height 5 ft 3 in Body Mass Index (BMI) 69.0 Weight Measurement Method Est/Stated by Patient Active Medications Generic Name Dose Route Start Last Admin Trade Name Freq PRN Reason Stop Dose Admin Acetaminophen 650 mg 02/27/18 01:25 Tylenol - PO Q4H PRN PAIN LEVEL 1-5 Amitriptyline HCl 25 mg 02/27/18 22:00 02/27/18 22:26 Elavil - PO 25 mg HS [facility] Administration Aspirin 81 mg 02/27/18 10:00 02/27/18 10:00 Asa - PO 81 mg DAILY [facility] Administration Atorvastatin Calcium 80 mg 02/27/18 22:00 02/27/18 22:27 Lipitor - PO 80 mg HS [facility] Administration Budesonide/Formoterol Fumarate 2 puff 02/27/18 10:00 02/27/18 22:38 Symbicort 80/4.5mcg - IH 2 puff BID [facility] Administration Calcium Carbonate/Cholecalciferol 1 tab 02/27/18 10:00 02/27/18 10:01 Os-Lito 500+D - PO 1 tab DAILY [facility] Administration Carvedilol 37.5 mg 02/27/18 10:00 02/27/18 22:25 Coreg - PO 37.5 mg BID [facility] Administration Docusate Sodium 100 mg 02/27/18 06:00 02/28/18 06:22 Colace - PO 100 mg TID [facility] Administration Gabapentin 300 mg 02/27/18 22:00 02/27/18 22:27 Neurontin - PO 300 mg HS [facility] Administration Heparin Sodium (Porcine) 5,000 unit 02/27/18 06:00 02/28/18 06:22 Heparin - SQ 5,000 unit TID [facility] Administration Ceftriaxone Sodium 2 gm/ 50 mls @ 100 mls/hr 02/27/18 11:30 Dextrose IVPB DAILY [facility] Protocol Insulin Aspart 1 vial 02/27/18 07:00 02/28/18 06:21 Novolog Vial Sliding Scale - SQ 4 units ACHS [facility] Administration Protocol Lidocaine 1 patch 02/27/18 10:00 02/27/18 10:01 Lidoderm Patch - TP 1 patch DAILY [facility] Administration Losartan Potassium 25 mg 02/28/18 10:00 Cozaar - PO DAILY [facility] Miscellaneous 1 each 02/27/18 22:00 02/27/18 22:26 Lidoderm Patch Removal MC 1 each DAILY@2200 [facility] Administration Non-Formulary Medication 1.5 mg 02/27/18 01:25 Dulaglutide [Trulicity] SQ WEEKLY [facility] Prednisone 40 mg 02/27/18 11:00 02/27/18 11:07 Deltasone - PO 03/01/18 10:01 40 mg DAILY [facility] Administration Prednisone 20 mg 03/02/18 10:00 Deltasone - PO 03/04/18 10:01 DAILY [facility] Prednisone 10 mg 03/05/18 10:00 Deltasone - PO 03/07/18 10:01 DAILY [facility] Prednisone 5 mg 03/08/18 10:00 Deltasone - PO 03/10/18 10:01 DAILY [facility] Spironolactone 25 mg 02/28/18 10:00 Aldactone - PO DAILY [facility] Tiotropium [place] 2 puff 02/27/18 10:00 02/27/18 10:03 Spiriva Respimat IH 2 puff DAILY [facility] Administration Torsemide 20 mg 02/27/18 18:00 02/27/18 22:26 Demadex - PO 20 mg QID [facility] Administration Tramadol HCl 50 mg 02/27/18 01:25 02/27/18 22:32 Ultram - PO 50 mg Q6H PRN Administration PAIN LEVEL 6-10 Vital Signs (last) Temp Pulse Resp BP Pulse Ox 98.4 F 78 18 111/57 L 93 L 02/28/18 06:00 02/28/18 06:00 02/28/18 06:00 02/28/18 06:00 02/28/18 06:54 Laboratory (coagulation) PT with INR 15.30 SEC (9.7-13.0) H 02/26/18 20:37 Laboratory 02/28/18 07:00 02/28/18 07:00 ASSESSMENT AND PLAN Ms. Orantes is a 52 F s/p R elbow irrigation and debridement. POD 2 - Pain control: Transition to oral pain medications, minimize narcotic use - DVT prophylaxis - Dressings changed today; D/C Sutures POD 14 - Ice/Elevation RUE in sling - Left ankle x-rays negative. Elevate/Ice left ankle. - Elevate HOB, encourage oral intake - Appreciate medical rheumatology, and ID management (Abx, Steroids, Nutrition optimization, decubitus precautions heel/sacrum) - PT/OT; WBAT LLE, Increase ROM of Right elbow. - Follow up lower extremity doppler report - Will follow
[2018-02-28] MEDS ORDERED: PT OWN MED DRAWER 7, Y5N ONE (10:48)
--- NOTE | 2018-02-28 10:48 | PN ---
Teaching Attending Note Name of Resident: Darrius Davis ATTENDING PHYSICIAN STATEMENT I saw and evaluated the patient. I reviewed the resident's note and discussed the case with the resident. I agree with the resident's findings and plan as documented with exceptions below. SUBJECTIVE: Patient seen and examined. right elbow/left ankle symptoms markedly improved. Declines melara removal till ambulatory. No other complaints. OBJECTIVE: Vital Signs Period Temp Pulse Resp BP Sys/Bowen Pulse Ox Last 24 Hr 98.3 F-99.1 F 78-92 18-20 111-150/57-87 92-99 Intake & Output 02/25/18 02/26/18 02/27/18 02/28/18 23:59 23:59 23:59 23:59 Intake Total 700 1250 150 Output Total 100 1100 1900 Balance 600 150 -1750 Weight 390 lb General: sitting in bed in no acute distress Extremities: right elbow dressing clean, sling, ROM at finger/wrist and elbow markedly improved, positive pulses, well perfused. LLE improved swelling/resolved erythema, improved ROM Abdomen;Soft, obese, NT, no suprapubic or CVA tenderness Home Medications Medication Instructions Recorded Amitriptyline HCl 25 mg PO HS 02/26/18 Aspirin 81 mg PO DAILY 02/26/18 Atorvastatin Ca [Lipitor] 80 mg PO HS 02/26/18 Budesonide/Formeterol Fumarate 2 inh PO BID 02/26/18 [SYMBICORT 80/4.5mcg -] Carvedilol 25 mg PO BID 02/26/18 Dulaglutide [Trulicity] 1.5 mg SQ WEEKLY 02/26/18 Gabapentin 300 mg PO HS 02/26/18 Insulin Degludec [Tresiba 98 unit SQ DAILY 02/26/18 Flextouch U-200] Losartan Potassium 25 mg PO DAILY 02/26/18 Spironolactone 25 mg PO DAILY 02/26/18 Torsemide 20 mg PO QID 02/26/18 Tramadol HCl 50 mg PO DAILY PRN 02/26/18 Metformin HCl [Metformin HCl ER] 500 mg PO BID 02/27/18 Active Medications Acetaminophen (Tylenol -) 650 mg PO Q4H PRN PRN Reason: PAIN LEVEL 1-5 Amitriptyline HCl (Elavil -) 25 mg PO HS [facility] Last Admin: 02/27/18 22:26 Dose: 25 mg Aspirin (Asa -) 81 mg PO DAILY [facility] Last Admin: 02/27/18 10:00 Dose: 81 mg Atorvastatin Calcium (Lipitor -) 80 mg PO HS [facility] Last Admin: 02/27/18 22:27 Dose: 80 mg Budesonide/Formoterol Fumarate (Symbicort 80/4.5mcg -) 2 puff IH BID [facility] Last Admin: 02/27/18 22:38 Dose: 2 puff Calcium Carbonate/Cholecalciferol (Os-Lito 500+D -) 1 tab PO DAILY [facility] Last Admin: 02/27/18 10:01 Dose: 1 tab Carvedilol (Coreg -) 37.5 mg PO BID [facility] Last Admin: 02/27/18 22:25 Dose: 37.5 mg Docusate Sodium (Colace -) 100 mg PO TID [facility] Last Admin: 02/28/18 06:22 Dose: 100 mg Gabapentin (Neurontin -) 300 mg PO HS [facility] Last Admin: 02/27/18 22:27 Dose: 300 mg Heparin Sodium (Porcine) (Heparin -) 5,000 unit SQ TID [facility] Last Admin: 02/28/18 06:22 Dose: 5,000 unit Ceftriaxone Sodium 2 gm/ (Dextrose) 50 mls @ 100 mls/hr IVPB DAILY [facility]; Protocol Insulin Aspart (Novolog Vial Sliding Scale -) 1 vial SQ ACHS [facility]; Protocol Last Admin: 02/28/18 06:21 Dose: 4 units Insulin Detemir (Levemir Vial) 20 units SQ DAILY [facility] Lidocaine (Lidoderm Patch -) 1 patch TP DAILY [facility] Last Admin: 02/27/18 10:01 Dose: 1 patch Losartan Potassium (Cozaar -) 25 mg PO DAILY [facility] Miscellaneous (Lidoderm Patch Removal) 1 each MC DAILY@2200 [facility] Last Admin: 02/27/18 22:26 Dose: 1 each Non-Formulary Medication (Dulaglutide [Trulicity]) 1.5 mg SQ WEEKLY [facility] Prednisone (Deltasone -) 40 mg PO DAILY [facility] Stop: 03/01/18 10:01 Last Admin: 02/27/18 11:07 Dose: 40 mg Prednisone (Deltasone -) 20 mg PO DAILY [facility] Stop: 03/04/18 10:01 Prednisone (Deltasone -) 10 mg PO DAILY [facility] Stop: 03/07/18 10:01 Prednisone (Deltasone -) 5 mg PO DAILY [facility] Stop: 03/10/18 10:01 Spironolactone (Aldactone -) 25 mg PO DAILY [facility] Tiotropium [place] (Spiriva Respimat) 2 puff IH DAILY [facility] Last Admin: 02/27/18 10:03 Dose: 2 puff Torsemide (Demadex -) 20 mg PO QID [facility] Last Admin: 02/27/18 22:26 Dose: 20 mg Tramadol HCl (Ultram -) 50 mg PO Q6H PRN PRN Reason: PAIN LEVEL 6-10 Last Admin: 02/27/18 22:32 Dose: 50 mg Laboratory Results - last 24 hr 02/26/18 02/27/18 02/27/18 18:52 01:00 11:11 WBC RBC Hgb Hct MCV MCH MCHC RDW Plt Count MPV Absolute Neuts (auto) Neutrophils % Lymphocytes % Monocytes % Eosinophils % Basophils % Nucleated RBC % Sodium Potassium Chloride Carbon Dioxide Anion Gap BUN Creatinine Creat Clearance w eGFR POC Glucometer 235 Random Glucose Calcium Phosphorus Magnesium Synovial Crystals Positive Positive 02/27/18 02/27/18 02/28/18 16:43 22:42 06:19 WBC RBC Hgb Hct MCV MCH MCHC RDW Plt Count MPV Absolute Neuts (auto) Neutrophils % Lymphocytes % Monocytes % Eosinophils % Basophils % Nucleated RBC % Sodium Potassium Chloride Carbon Dioxide Anion Gap BUN Creatinine Creat Clearance w eGFR POC Glucometer 288 428 240 Random Glucose Calcium Phosphorus Magnesium Synovial Crystals 02/28/18 02/28/18 07:00 07:00 WBC 18.0 H RBC 4.03 Hgb 8.3 L Hct 27.2 L MCV 67.5 L MCH 20.6 L MCHC 30.5 L RDW 21.4 H Plt Count 272 MPV 9.1 Absolute Neuts (auto) 14.8 H Neutrophils % 82.3 Lymphocytes % 10.3 Monocytes % 7.1 Eosinophils % 0.0 D Basophils % 0.3 Nucleated RBC % 0 Sodium 135 L Potassium 4.2 Chloride 97 L Carbon Dioxide 29 Anion Gap 8 BUN 40 H Creatinine 1.3 Creat Clearance w eGFR 43.18 POC Glucometer Random Glucose 207 H Calcium 8.7 Phosphorus 3.6 Magnesium 2.2 Synovial Crystals Microbiology 02/27/18 01:00 Synovial Fluid - Elbow Gram Stain - Final 02/27/18 01:00 Synovial Fluid - Elbow Body Fluid Culture - Preliminary NO AEROBIC GROWTH, 24 HRS 02/26/18 18:52 Synovial Fluid - Elbow Gram Stain - Final 02/26/18 18:52 Synovial Fluid - Elbow Body Fluid Culture - Preliminary NO AEROBIC GROWTH, 24 HRS 02/27/18 01:00 Elbow - Right Gram Stain - Final 02/27/18 01:00 Elbow - Right Wound Culture - Preliminary NO GROWTH OBTAINED AFTER 24 HOURS INCUBATION, REINCUBATED. 02/27/18 01:00 Elbow - Right Gram Stain - Final 02/27/18 01:00 Elbow - Right Wound Culture - Preliminary NO GROWTH OBTAINED AFTER 24 HOURS INCUBATION, REINCUBATED. 02/26/18 17:50 Urine - Urine Melara Urine Culture - Preliminary Lactose Fermenting Neg Bacilli Non Lactose Fermenting Gnb 02/26/18 13:03 Blood - Peripheral Venous Blood Culture - Preliminary NO GROWTH OBTAINED AFTER 24 HOURS, INCUBATION TO CONTINUE FOR 4 DAYS. 02/26/18 13:05 Blood - Peripheral Venous Blood Culture - Preliminary NO GROWTH OBTAINED AFTER 24 HOURS, INCUBATION TO CONTINUE FOR 4 DAYS. ASSESSMENT AND PLAN: 52 yf with pMHx of NICM, systolic HF, last EF 30-35% 1.5 years ago, S/p ICD 2004 , prior h/o etoh/cocaine use, HTN, morbid obesity, DINA on nightly CPAP, IDDM, HLD, LLE neuropathy with chronic pain, CKD (last cr 01/2018 1.6), ?rheumatoid arthritis, Osteoarthritis, admitted with right elbow and Left ankle pain/ limitation of movements. -Right elbow/left ankle pain likely acute gouty arthritis, r/o septic arthritis (low suspicion) -NICM, systolic HF, last EF 30-35% 1.5 years ago, S/p ICD 2004 -LLE swelling/erythema, improved -Lower uncomplicated UTI vs asymptomatic bacteruria -IDDM -HTN -Morbid obesity -DINA on nightly CPAP -HLD -LLE neuropathy -CKD (last cr in 01/2018 1.6) -?Rheumatoid arthritis -Osteoarthritis -h/o ETOH/Cocaine use -COPD on 2L home oxygen Plan: Orthopedic/rheumatology consult. s/p Right elbow aspiration/washout Gm stain neg. positive crystals. hyperuricemia, all suggestive of gout. Started on prednisone. Discussed with Dr. Suarez, plan to start allopurinol at 100 mg daily in 3-4 days and overlap with steroids, will eventually need higher dose. Fluid cx neg. No indication of abx from rheumatological standpoint. Suture removal POD #14, wound care per orthopedic. u/a urine cx noted. Patient declined melara removal last night, counseled about risk of infection. Agreable only once ambulatory. PT eval, encourage OOB. Ceftriaxone day 2 for now, follow up cultures. Blood cx neg so far. Not a candidate for NSAIDs/colchicine. LLE Duplex neg. Continue ARB/Aldactone/torsemide Strict I/os and daily weights. ISS, diabetic diet. Start levemir 20 units daily. transition to home regimen on d/c Nebs, home oxygen. Nightly CPAP TYlenol/tramadol for pain DVTPPX with heparin. Dispo in 1-2 days on steroid taper +/- antibiotics if continues to improve. PT eval and CM consult for d/c planning Plan discussed with patient and nursing in detail, all questions answered.
[2018-02-28] MEDS ORDERED: DEXTROSE 5%-WATER - 50 ML IVPB ONE (10:49)
[2018-02-28] MEDS: CARVEDILOL 12.5 MG TABLET (FP) PO SCH ×2 (10:54→21:03)
[2018-02-28] MEDS: ASPIRIN 81 MG CHEWABLE TABLETS PO SCH (10:54)
[2018-02-28] MEDS: LIDOCAINE 5% TOPICAL PATCH TP SCH (10:55)
[2018-02-28] MEDS: LOSARTAN POTASSIUM 25 MG TABLET PO SCH (10:55)
[2018-02-28] MEDS: TORSEMIDE 20 MG TABLET (FP) PO SCH ×4 (10:55→21:04)
[2018-02-28] MEDS: CALCIUM 500MG/VIT-D 200 UNITS COMBO TABLET (FP) PO SCH (10:55)
[2018-02-28] MEDS: CEFTRIAXONE 2 GM in DEXTROSE 5%-WATER - 50 ML IVPB SCH (10:56)
[2018-02-28] MEDS: predniSONE 20 MG TABLET (UD) PO SCH (11:01)
[2018-02-28] MEDS: TIOTROPIUM BROMIDE 2.5 MCG (SPIRIVA) RESPIMAT INHALER IH SCH (11:02)
[2018-02-28] MEDS: BUDESONIDE/FORMETEROL FUMARATE 80/4.5 mcg INHALER IH SCH ×2 (11:02→22:02)
[2018-02-28] MEDS: SPIRONOLACTONE 25 MG TABLET (FP) PO SCH (11:05)
--- NOTE | 2018-02-28 11:54 | PN ---
Physical Exam: SUBJECTIVE: Patient seen and examined this AM. States that her right arm is much better and that her only complaint now is her left ankle/heel pain. Expressed her desire to be able to walk and hopefully be discharged soon. Discussed with pt the importance of walking with PT today. Overnight events noted, pt refusing to have Huynh removed at this time. OBJECTIVE: Vital Signs Period Temp Pulse Resp BP Sys/Bowen Pulse Ox Last 24 Hr 98.3 F-99.1 F 78-92 18-20 111-150/57-87 92-99 GENERAL: Alert and oriented. HEAD: Normocephalic, atraumatic. EYES: PERRL, no scleral icterus EARS, NOSE, THROAT: oropharynx clear without exudates. Dry mucous membranes. NECK: supple without lymphadenopathy LUNGS: CTA, decreased breath sounds diffusely HEART: Regular rate and rhythm, normal S1 and S2 without murmur ABDOMEN: Soft, morbidly obese, nontender to palpation, normoactive bowel sounds MUSCULOSKELETAL: Dressing clean and dry. Right arm in sling. Left ankle with erythema and swelling. EXTREMITIES: 2+ pulses, warm, well-perfused. No peripheral edema. NEUROLOGICAL: Cranial nerves II-XII grossly intact. Normal speech. PSYCHIATRIC: Cooperative. Good eye contact. Heightened emotional response SKIN: Warm, dry, no rashes or lesions noted Laboratory Results - last 24 hr 02/26/18 02/27/18 02/27/18 18:52 01:00 11:11 WBC RBC Hgb Hct MCV MCH MCHC RDW Plt Count MPV Absolute Neuts (auto) Neutrophils % Lymphocytes % Monocytes % Eosinophils % Basophils % Nucleated RBC % Sodium Potassium Chloride Carbon Dioxide Anion Gap BUN Creatinine Creat Clearance w eGFR POC Glucometer 235 Random Glucose Calcium Phosphorus Magnesium Synovial Crystals Positive Positive 02/27/18 02/27/18 02/28/18 16:43 22:42 06:19 WBC RBC Hgb Hct MCV MCH MCHC RDW Plt Count MPV Absolute Neuts (auto) Neutrophils % Lymphocytes % Monocytes % Eosinophils % Basophils % Nucleated RBC % Sodium Potassium Chloride Carbon Dioxide Anion Gap BUN Creatinine Creat Clearance w eGFR POC Glucometer 288 428 240 Random Glucose Calcium Phosphorus Magnesium Synovial Crystals 02/28/18 02/28/18 07:00 07:00 WBC 18.0 H RBC 4.03 Hgb 8.3 L Hct 27.2 L MCV 67.5 L MCH 20.6 L MCHC 30.5 L RDW 21.4 H Plt Count 272 MPV 9.1 Absolute Neuts (auto) 14.8 H Neutrophils % 82.3 Lymphocytes % 10.3 Monocytes % 7.1 Eosinophils % 0.0 D Basophils % 0.3 Nucleated RBC % 0 Sodium 135 L Potassium 4.2 Chloride 97 L Carbon Dioxide 29 Anion Gap 8 BUN 40 H Creatinine 1.3 Creat Clearance w eGFR 43.18 POC Glucometer Random Glucose 207 H Calcium 8.7 Phosphorus 3.6 Magnesium 2.2 Synovial Crystals Active Medications Generic Name Dose Route Start Last Admin Trade Name Freq PRN Reason Stop Dose Admin Acetaminophen 650 mg 02/27/18 01:25 Tylenol - PO Q4H PRN PAIN LEVEL 1-5 Amitriptyline HCl 25 mg 02/27/18 22:00 02/27/18 22:26 Elavil - PO 25 mg HS DERECK Administration Aspirin 81 mg 02/27/18 10:00 02/28/18 10:54 Asa - PO 81 mg DAILY DERECK Administration Atorvastatin Calcium 80 mg 02/27/18 22:00 02/27/18 22:27 Lipitor - PO 80 mg HS DERECK Administration Budesonide/Formoterol Fumarate 2 puff 02/27/18 10:00 02/28/18 11:02 Symbicort 80/4.5mcg - IH 2 puff BID DERECK Administration Calcium Carbonate/Cholecalciferol 1 tab 02/27/18 10:00 02/28/18 10:55 Os-Lito 500+D - PO 1 tab DAILY DERECK Administration Carvedilol 37.5 mg 02/27/18 10:00 02/28/18 10:54 Coreg - PO 37.5 mg BID DERECK Administration Docusate Sodium 100 mg 02/27/18 06:00 02/28/18 06:22 Colace - PO 100 mg TID DERECK Administration Gabapentin 300 mg 02/27/18 22:00 02/27/18 22:27 Neurontin - PO 300 mg HS DERECK Administration Heparin Sodium (Porcine) 5,000 unit 02/27/18 06:00 02/28/18 06:22 Heparin - SQ 5,000 unit TID DERECK Administration Ceftriaxone Sodium 2 gm/ 50 mls @ 100 mls/hr 02/27/18 11:30 02/28/18 10:56 Dextrose IVPB 100 mls/hr DAILY DERECK Administration Protocol Insulin Aspart 1 vial 02/27/18 07:00 02/28/18 06:21 Novolog Vial Sliding Scale - SQ 4 units ACHS DERECK Administration Protocol Insulin Detemir 20 units 02/28/18 10:45 Levemir Vial SQ DAILY DERECK Lidocaine 1 patch 02/27/18 10:00 02/28/18 10:55 Lidoderm Patch - TP 1 patch DAILY DERECK Administration Losartan Potassium 25 mg 02/28/18 10:00 02/28/18 10:55 Cozaar - PO 25 mg DAILY EDRECK Administration Miscellaneous 1 each 02/27/18 22:00 02/27/18 22:26 Lidoderm Patch Removal MC 1 each DAILY@2200 DERECK Administration Non-Formulary Medication 1.5 mg 02/27/18 01:25 Dulaglutide [Trulicity] SQ WEEKLY [facility] Prednisone 40 mg 02/27/18 11:00 02/28/18 11:01 Deltasone - PO 03/01/18 10:01 40 mg DAILY DERECK Administration Prednisone 20 mg 03/02/18 10:00 Deltasone - PO 03/04/18 10:01 DAILY DERECK Prednisone 10 mg 03/05/18 10:00 Deltasone - PO 03/07/18 10:01 DAILY [facility] Prednisone 5 mg 03/08/18 10:00 Deltasone - PO 03/10/18 10:01 DAILY [facility] Spironolactone 25 mg 02/28/18 10:00 02/28/18 11:05 Aldactone - PO 25 mg DAILY DERECK Administration Tiotropium [place] 2 puff 02/27/18 10:00 02/28/18 11:02 Spiriva Respimat IH 2 puff DAILY DERECK Administration Torsemide 20 mg 02/27/18 18:00 02/28/18 10:55 Demadex - PO 20 mg QID DERECK Administration Tramadol HCl 50 mg 02/27/18 01:25 02/27/18 22:32 Ultram - PO 50 mg Q6H PRN Administration PAIN LEVEL 6-10 ASSESSMENT/PLAN: 52 yo F with PMH HTN, COPD (2L home O2), Systolic CHF (ICD in place), IDDM with peripheral neuropathy, RA, OA, and sciatica admitted with severe pain in her right elbow that began one day ago but was severely worse on waking up this AM. Right Elbow and Left Ankle Pain -Gram stain negative, crystals positive in synovial fluid -ESR, CRP elevated -Uric acid 16.1 -Xray noted -Ortho and Rheumatology both consulted -s/p OR washout of joint secondary to very high WBC count in initial tap -Prednisone taper begun today, will add allopurinol in a couple days to overlap with the end of the prednisone taper -Avoid NSAIDs with current renal function and unknown renal history -Pain greatly improved in elbow, but left foot still painful -LLE Duplex pending official read -Expressed importance of walking with PT for discharge planning UTI -Pt is asymptomatic and refusing removal of Huynh catheter -UA noted with 3+ LE and 728 WBCs -Pt already on Rocephin 2 gm IV Daily Elevated BUN/Cr -Pt states that her BUN/Cr are monitored by her wrapper stripper as she is on multiple diuretics -She does not however endorse knowing if the numbers were ever elevated -Currently 43/1.7, stable from yesterday -Trend BMP -Encouraged PO intake COPD -Requires 2L of home O2 -Stable, not in acute exacerbation -Continue home regimen -Spiriva 2 puffs IH Daily Systolic CHF -Currently stable with no signs of acute fluid overload -Case discussed with PCP who states echo which revealed EF of 30-35% -Pt with known AICD in place -Hold fluids for now, but with elevated BUN/Cr and clinically dry, encouraged pt for PO intake -Aldactone 25 mg PO Daily -Coreg 37.5 mg PO BID -Losartan 25 mg PO Daily -Torsemide 20 mg PO QID IDDM -BGMs ACHS -Insulin Sliding scale for glycemic control -Levemir 20 units SQ Daily Sciatica/OA/RA -Continue home pain regimen, verified with pharmacy DVT Prophylaxis -Heparin 5000 units SQ TID FEN -Fluids: NONE -Electrolytes: No electrolyte abnormalities, BMP in AM -Nutrition: Diabetic Na Controlled Diet Disposition Med/Surg Visit type - Emergency Visit Emergency Visit: Yes ED Registration Date: 02/26/18 Care time: The patient presented to the Emergency Department on the above date and was hospitalized for further evaluation of their emergent condition. - New Patient This patient is new to me today: No - Critical Care Critical Care patient: No
[2018-02-28] MEDS: INSULIN (LEVEMIR) 100 UNITS/ML UNITS SQ SCH (12:16)
[2018-02-28] MEDS: traMADol HCL 50 MG TABLET PO PRN (13:00)
[2018-02-28] MEDS: ATORVASTATIN CA 80 MG TABLET (FP) PO SCH (21:03)
[2018-02-28] MEDS: AMITRIPTYLINE HCL 25 MG TABLET (FP) PO SCH (21:03)
[2018-02-28] MEDS: GABAPENTIN 300 MG CAPSULE (FP) PO SCH (21:04)
[2018-02-28] MEDS: LIDOCAINE PATCH REMOVAL MC SCH (22:02)
[2018-03-01] MEDS: traMADol HCL 50 MG TABLET PO PRN (00:59)
[2018-03-01] MEDS: INSULIN SLIDING SCALE (NOVOLOG) 1 VIAL SQ SCH ×2 (06:59→12:47)
[2018-03-01] MEDS: DOCUSATE SODIUM 100 MG CAPSULE (FP) PO SCH ×2 (06:59→14:44)
[2018-03-01] MEDS: HEPARIN NA (PORCINE) 5,000 UNITS/ML 1ML VIAL SQ SCH ×2 (06:59→14:44)
[2018-03-01 07:57] LABS: BASO % 0.3 % (0-2.0); EOS % 0.1 % (0-4.5); LYMPH % 12.3 % (8-40); MCHC 33.3 g/dl (32.0-36.0); MEAN PLT VOLUME 9.2 fl (7.5-11.1); MONO % 10.1 % (3.8-10.2); NEUT % 77.2 % (42.8-82.8); PLATELET COUNT 344 K/MM3 (134-434); RBC 4.09 M/mm3 (3.60-5.2); RDW 21.4 % (11.6-15.6); WHITE BLOOD COUNT 19.5 K/mm3 (4.0-10.0)
[2018-03-01 09:39] LABS: ANION GAP 7 MMOL/L (8-16); BLOOD UREA NITROGEN 47 mg/dL (7-18); CALCIUM 8.8 mg/dL (8.5-10.1); CHLORIDE 98 mmol/L (98-107); CO2 32 mmol/L (21-32); CREATININE 1.3 mg/dL (0.55-1.3); GLUCOSE,RANDOM 262 mg/dL (74-106); MAGNESIUM 1.9 mg/dL (1.8-2.4); PHOSPHOROUS 3.4 mg/dL (2.5-4.9); POTASSIUM 4.1 mmol/L (3.5-5.1); SODIUM 136 mmol/L (136-145)
--- NOTE | 2018-03-01 09:54 | PN ---
Progress Note (short form) - Note Progress Note: ORTHOPEDIC SURGERY PROGRESS NOTE Department of Orthopedic Surgery SUBJECTIVE No acute events overnight. No complaints currently. Denies chest pain, shortness of breath, or calf pain. No nausea or vomiting. Tolerating oral intake. Pain controlled. PHYSICAL EXAMINATION General: Alert, oriented, cooperative and no distress. Right Upper Extremity: Dressing intact and dry. Skin intact, no lesions, rashes or ulcers noted. Muscle mass equal and symmetric to contralateral side. No atrophy noted. No masses or effusions noted. No tenderness to palpation. Improved ROM and pain. M/R/U/MSK/AX motor intact; SILT distally; 2+ radial pulses; Cap refill brisk. Right Lower Extremity: Left ankle mild swelling medial and lateral malleolus, improved. Skin intact, no lesions, rashes or ulcers noted. Muscle mass equal and symmetric to contralateral side. No atrophy noted. No masses or effusions noted. Mild tenderness to palpation of medial and lateral malleoli; Limited passive and active ROM secondary to mild swelling, and free from pain. EHL/TA/ GS motor intact; SILT distally; 2+ DP pulses; Cap refill brisk. DVT Exam: No evidence of DVT seen on physical exam; No cords or calf tenderness ; Right ankle edema improved. Able to bear full weight. Intake & Output 02/27/18 02/28/18 03/01/18 23:59 23:59 23:59 Intake Total 1250 650 200 Output Total 1100 4700 1800 Balance 150 -4050 -1600 Intake: IV 500 0 Normal Saline - 1,000 ml 325 @ 75 mls/hr IV ASDIR DERECK Rx#:[id number] sl 0 0 IVPB 100 50 Oral 650 600 200 Output: Urine 1100 4700 1800 Huynh 1000 4700 1800 Other: Voiding Method Indwelling Catheter Diaper Toilet Bowel Movement No Active Medications Generic Name Dose Route Start Last Admin Trade Name Freq PRN Reason Stop Dose Admin Acetaminophen 650 mg 02/27/18 01:25 Tylenol - PO Q4H PRN PAIN LEVEL 1-5 Amitriptyline HCl 25 mg 02/27/18 22:00 02/28/18 21:03 Elavil - PO 25 mg HS DERECK Administration Aspirin 81 mg 02/27/18 10:00 02/28/18 10:54 Asa - PO 81 mg DAILY DERECK Administration Atorvastatin Calcium 80 mg 02/27/18 22:00 02/28/18 21:03 Lipitor - PO 80 mg HS DERECK Administration Budesonide/Formoterol Fumarate 2 puff 02/27/18 10:00 02/28/18 22:02 Symbicort 80/4.5mcg - IH Not Given BID DERECK Calcium Carbonate/Cholecalciferol 1 tab 02/27/18 10:00 02/28/18 10:55 Os-Lito 500+D - PO 1 tab DAILY DERECK Administration Carvedilol 37.5 mg 02/27/18 10:00 02/28/18 21:03 Coreg - PO 37.5 mg BID DERECK Administration Docusate Sodium 100 mg 02/27/18 06:00 03/01/18 06:59 Colace - PO Not Given TID DERECK Gabapentin 300 mg 02/27/18 22:00 02/28/18 21:04 Neurontin - PO 300 mg HS DERECK Administration Heparin Sodium (Porcine) 5,000 unit 02/27/18 06:00 03/01/18 06:59 Heparin - SQ 5,000 unit TID DERECK Administration Ceftriaxone Sodium 2 gm/ 50 mls @ 100 mls/hr 02/27/18 11:30 02/28/18 10:56 Dextrose IVPB 100 mls/hr DAILY DERECK Administration Protocol Insulin Aspart 1 vial 02/27/18 07:00 03/01/18 06:59 Novolog Vial Sliding Scale - SQ 5 units ACHS DERECK Administration Protocol Insulin Detemir 20 units 02/28/18 10:45 02/28/18 12:16 Levemir Vial SQ 20 units DAILY DERECK Administration Lidocaine 1 patch 02/27/18 10:00 02/28/18 10:55 Lidoderm Patch - TP 1 patch DAILY DERECK Administration Losartan Potassium 25 mg 02/28/18 10:00 02/28/18 10:55 Cozaar - PO 25 mg DAILY DERECK Administration Miscellaneous 1 each 02/27/18 22:00 02/28/18 22:02 Lidoderm Patch Removal MC 1 each DAILY@2200 DERECK Administration Non-Formulary Medication 1.5 mg 02/27/18 01:25 Dulaglutide [Trulicity] SQ WEEKLY DERECK Prednisone 40 mg 02/27/18 11:00 02/28/18 11:01 Deltasone - PO 03/01/18 10:01 40 mg DAILY DERECK Administration Prednisone 20 mg 03/02/18 10:00 Deltasone - PO 03/04/18 10:01 DAILY DERECK Prednisone 10 mg 03/05/18 10:00 Deltasone - PO 03/07/18 10:01 DAILY DERECK Prednisone 5 mg 03/08/18 10:00 Deltasone - PO 03/10/18 10:01 DAILY DERECK Spironolactone 25 mg 02/28/18 10:00 02/28/18 11:05 Aldactone - PO 25 mg DAILY DERECK Administration Tiotropium [place] 2 puff 02/27/18 10:00 02/28/18 11:02 Spiriva Respimat IH 2 puff DAILY DERECK Administration Torsemide 20 mg 02/27/18 18:00 02/28/18 21:04 Demadex - PO 20 mg QID DERECK Administration Tramadol HCl 50 mg 02/27/18 01:25 03/01/18 00:59 Ultram - PO 50 mg Q6H PRN Administration PAIN LEVEL 6-10 Vital Signs (last) Temp Pulse Resp BP Pulse Ox 97.4 F L 69 20 146/77 92 L 03/01/18 05:43 03/01/18 05:43 03/01/18 05:43 03/01/18 05:43 03/01/18 08:14 Laboratory (coagulation) PT with INR 15.30 SEC (9.7-13.0) H 02/26/18 20:37 Laboratory 03/01/18 06:20 03/01/18 06:00 IMAGING ASSESSMENT AND PLAN Ms. Orantes is a 52 F s/p R elbow irrigation and debridement. POD 3 - Pain control: Transition to oral pain medications, minimize narcotic use - DVT prophylaxis - Dressings change as needed; D/C Sutures POD 14 - Ice/Elevation RUE in sling - Elevate/Ice left ankle. - Elevate HOB, encourage oral intake - Appreciate medical rheumatology, and ID management (Abx, Steroids, Nutrition optimization, decubitus precautions heel/sacrum) - PT/OT; WBAT LLE, Increase ROM of Right elbow. - Doppler negative for DVT - Patient can follow up with me in the office 7-10 days after discharge; Post op instructions in patient's chart. Thank you for involving us in the care of your patient. Please have her call for an appointment or with any questions. Salazar Garner, DO Orthopedic Surgery
--- NOTE | 2018-03-01 11:07 | DS ---
Physical Exam: SUBJECTIVE: Patient seen and examined, no further elbow or ankle pain, wants to go home. No dysuria, fevers, chill, abdominal or urinary complaints. OBJECTIVE: Vital Signs Period Temp Pulse Resp BP Sys/Bowen Pulse Ox Last 24 Hr 97.4 F-98.8 F 64-71 18-22 135-183/64-96 91-93 PHYSICAL EXAM GENERAL: The patient is awake, alert, and fully oriented, in no acute distress. HEAD: Normal with no signs of trauma. EYES: PERRL, extraocular movements intact, sclera anicteric, conjunctiva clear. ENT: Ears normal, nares patent, oropharynx clear without exudates, moist mucous membranes. NECK: Trachea midline, full range of motion, supple. LUNGS: Breath sounds equal, clear to auscultation bilaterally, no wheezes, no crackles, no accessory muscle use. HEART: Regular rate and rhythm, S1, S2 ABDOMEN: Soft, nontender, nondistended, normoactive bowel sounds, no guarding, no rebound EXTREMITIES: right elbow dressing, no sling currently, almost full ROM, able to move fingers and wrist freely, positive pulses, minimal LLE swelling, no erythema/tenderness noted, ROM improved left ankle PSYCH: Normal mood, normal affect. SKIN: Warm, dry, normal turgor, no rashes or lesions noted. LABS Laboratory Results - last 24 hr 02/28/18 02/28/18 02/28/18 07:00 12:14 16:36 WBC RBC Hgb Hct MCV MCH MCHC RDW Plt Count MPV Absolute Neuts (auto) Neutrophils % Lymphocytes % Monocytes % Eosinophils % Basophils % Nucleated RBC % Retic Count 0.94 Sodium Potassium Chloride Carbon Dioxide Anion Gap BUN Creatinine Creat Clearance w eGFR POC Glucometer 308 356 Random Glucose Calcium Phosphorus Magnesium 02/28/18 03/01/18 03/01/18 21:00 06:00 06:20 WBC 19.5 H RBC 4.09 Hgb 9.0 L Hct 27.0 L MCV 66.0 L MCH 22.0 L MCHC 33.3 RDW 21.4 H Plt Count 344 D MPV 9.2 Absolute Neuts (auto) 15.1 H Neutrophils % 77.2 Lymphocytes % 12.3 Monocytes % 10.1 Eosinophils % 0.1 D Basophils % 0.3 Nucleated RBC % 0 Retic Count Sodium 136 Potassium 4.1 Chloride 98 Carbon Dioxide 32 Anion Gap 7 L BUN 47 H Creatinine 1.3 Creat Clearance w eGFR 43.18 POC Glucometer 396 Random Glucose 262 H Calcium 8.8 Phosphorus 3.4 Magnesium 1.9 03/01/18 06:57 WBC RBC Hgb Hct MCV MCH MCHC RDW Plt Count MPV Absolute Neuts (auto) Neutrophils % Lymphocytes % Monocytes % Eosinophils % Basophils % Nucleated RBC % Retic Count Sodium Potassium Chloride Carbon Dioxide Anion Gap BUN Creatinine Creat Clearance w eGFR POC Glucometer 286 Random Glucose Calcium Phosphorus Magnesium Microbiology 02/27/18 01:00 Synovial Fluid - Elbow Gram Stain - Final 02/27/18 01:00 Synovial Fluid - Elbow Body Fluid Culture - Final NO GROWTH OF AEROBIC ORGANISMS AFTER 48 HOURS INCUBATION 02/27/18 01:00 Synovial Fluid - Elbow Anaerobic Culture - Final NO ANAEROBES WERE ISOLATED 02/26/18 18:52 Synovial Fluid - Elbow Gram Stain - Final 02/26/18 18:52 Synovial Fluid - Elbow Body Fluid Culture - Final NO GROWTH OF AEROBIC ORGANISMS AFTER 48 HOURS INCUBATION 02/26/18 18:52 Synovial Fluid - Elbow Anaerobic Culture - Final NO ANAEROBES WERE ISOLATED 02/27/18 01:00 Elbow - Right Gram Stain - Final 02/27/18 01:00 Elbow - Right Wound Culture - Final NO GROWTH AFTER 48 HOURS INCUBATION 02/27/18 01:00 Elbow - Right Gram Stain - Final 02/27/18 01:00 Elbow - Right Wound Culture - Final NO GROWTH AFTER 48 HOURS INCUBATION 02/26/18 17:50 Urine - Urine Huynh Urine Culture - Final Escherichia Coli Escherichia Coli#2 02/26/18 13:03 Blood - Peripheral Venous Blood Culture - Preliminary NO GROWTH OBTAINED AFTER 48 HOURS, INCUBATION TO CONTINUE FOR 3 DAYS. 02/26/18 13:05 Blood - Peripheral Venous Blood Culture - Preliminary NO GROWTH OBTAINED AFTER 48 HOURS, INCUBATION TO CONTINUE FOR 3 DAYS. Right elbow xray - degenerative changes, no acute process Left ankle xray - swelling and degenerative LLE Duplex neg for DVT HOSPITAL COURSE: Date of Admission:02/26/18 Date of Discharge: 03/01/18 Minutes to complete discharge: 45 Discharge Summary Reason For Visit: ACUTE GOUTY ARTHRITIS Current Active Problems Acute gouty arthritis (Acute) Diabetes (Acute) Hospital Course: 52 yf with pMHx of NICM, systolic HF, last EF 30-35% 1.5 years ago, S/p ICD 2004 , prior h/o etoh/cocaine use, HTN, morbid obesity, DINA on nightly CPAP, IDDM, HLD, LLE neuropathy with chronic pain, CKD (last cr 01/2018 1.6), ?rheumatoid arthritis, Osteoarthritis, admitted with right elbow and Left ankle pain/ limitation of movements. Orthopedic and rheumatology were consulted. She received right elbow arthrocentesis with WBC 92,000 and positive crystals in the aspirate. She was taken to the OR for right elbow washout. Her aspirate gm stain and cultures have been negative. She was noted with leucocytosis and marked hyperuricemia with highly elevated ESR/CRP consistent with acute gout flare. She was started on prednisone taper by rheumatology with marked improvement in her symptoms. She was seen by infectious disease and placed on ceftriaxone pending final aspirate culture results. She was also found with UTI with pansensitive E. coli and is transitioned to keflex from ceftriaxone on discharge of a week course. Per rheumatology recommendations, patient is to start on allopurinol 100 mg daily after 3-4 days of prednisone and will likely need uptitration of her allopurinol outpatient given significant hyperuricemia which has been discussed in detail with patient. She is arranged for home discharge with VNS and physical therapy and will need her right elbow sutures removed on POD #14. Plan and all discharge instructions have been discussed in detail with patient, she relays understanding and will be discharge home in stable condition. Condition: Good - Instructions Diet, Activity, Other Instructions: You were admitted with right elbow and left ankle pain and diagnosed with gout. You were seen by orthopedic and rheumatology, had wash out of right elbow. You were also found with urinary tract infection and placed on antibiotics. ACTIVITY: ORTHOPEDIC INSTRUCTIONS PER PAPER CHART. Please continue all activity and wound care as directed by orthopedic given on his instruction sheet. Keep wound clean and dry. Continue physical therapy for elbow exercise and strengthening. Right elbow suture removal on day 14 of surgery (March 12) MEDICATIONS; Following medications are added: Prednisone take as follows 20 mg daily for 3 days starting tomorrow (03/02, 03/03,03/04) 10 mg daily for 3 days then (03/05, 03/06, 03/07) 5 mg daily for 3 days then (03/08, 03/09 and 03/10), then off. Allopurinol 100 mg daily (start tomorrow 03/02) Please note that you will likely need higher doses of allopurinol in the future which will be addressed by your stereo operator. Your kidneys will need to monitored and notify your doctor if any rash or new concerns noted. Antibiotic keflex 500 mg twice daily starting tomorrow (03/02) for 4 days. Continue other medications as before Your medications are sent to [facility] pharmacy on [address] [facility]. It is very important that you monitor your blood sugars while on steroids. Check blood glucose before meals and at bedtime and maintain a diary. Notify your doctor if < 75 or persistently > 200 or any reading > 350 noted. Weigh yourself daily and notify doctor if weight gain > 3 lbs in 2 days. FOLLOW UP: Primary care doctor in [address] Garner in 10 days (need suture removal on March) please call his office on discharge to [facility] follow up Loan Review Officer Dr. Suarez in 1-2 weeks. Continue to work with physical therapy and use right elbow sling and rolling walker as needed. If you notice any fevers, chills, worsening pain, or any new concerns, please call 911 or come to ED. Referrals: Aldo Suarez MD [Staff Physician] - Salazar Garner DO [Staff Physician] - Disposition: VNS/HOME HEALTH CARE - Home Medications Comprehensive Discharge Medication List: Ambulatory Orders Amitriptyline HCl 25 mg PO HS 02/26/18 Aspirin 81 mg PO DAILY 02/26/18 Atorvastatin Ca [Lipitor] 80 mg PO HS 02/26/18 Budesonide/Formeterol Fumarate [SYMBICORT 80/4.5mcg -] 2 inh PO BID 02/26/18 Carvedilol 25 mg PO BID 02/26/18 Dulaglutide [Trulicity] 1.5 mg SQ WEEKLY 02/26/18 Gabapentin 300 mg PO HS 02/26/18 Insulin Degludec [Tresiba Flextouch U-200] 98 unit SQ DAILY 02/26/18 Losartan Potassium 25 mg PO DAILY 02/26/18 Spironolactone 25 mg PO DAILY 02/26/18 Torsemide 20 mg PO QID 02/26/18 Tramadol HCl 50 mg PO DAILY PRN 02/26/18 Metformin HCl [Metformin HCl ER] 500 mg PO BID 02/27/18 Allopurinol [Zyloprim -] 100 mg PO DAILY #30 tablet 03/01/18 Cephalexin [Keflex] 500 mg PO Q12H #8 capsule 03/01/18 Prednisone See Taper PO DAILY #21 tablet 03/01/18 This patient is new to me today: No Emergency Visit: Yes ED Registration Date: 02/26/18 Care time: The patient presented to the Emergency Department on the above date and was hospitalized for further evaluation of their emergent condition. Critical Care patient: No - Discharge Referral Referred to [facility] Med [facility] No
[2018-03-01] MEDS ORDERED: DEXTROSE 5%-WATER - 50 ML IVPB ONE (11:56)
[2018-03-01] MEDS: CEFTRIAXONE 2 GM in DEXTROSE 5%-WATER - 50 ML IVPB SCH (12:00)
[2018-03-01] MEDS: CARVEDILOL 12.5 MG TABLET (FP) PO SCH (12:01)
[2018-03-01] MEDS: ASPIRIN 81 MG CHEWABLE TABLETS PO SCH (12:01)
[2018-03-01] MEDS: SPIRONOLACTONE 25 MG TABLET (FP) PO SCH (12:02)
[2018-03-01] MEDS: LOSARTAN POTASSIUM 25 MG TABLET PO SCH (12:02)
[2018-03-01] MEDS: TORSEMIDE 20 MG TABLET (FP) PO SCH ×2 (12:03→14:44)
[2018-03-01] MEDS: CALCIUM 500MG/VIT-D 200 UNITS COMBO TABLET (FP) PO SCH (12:03)
[2018-03-01] MEDS: LIDOCAINE 5% TOPICAL PATCH TP SCH (12:03)
[2018-03-01] MEDS: INSULIN (LEVEMIR) 100 UNITS/ML UNITS SQ SCH (12:03)
[2018-03-01] MEDS: predniSONE 20 MG TABLET (UD) PO SCH (12:03)
[2018-03-01] MEDS: BUDESONIDE/FORMETEROL FUMARATE 80/4.5 mcg INHALER IH SCH (12:04)
[2018-03-01] MEDS: TIOTROPIUM BROMIDE 2.5 MCG (SPIRIVA) RESPIMAT INHALER IH SCH (12:04)
[2018-03-01 14:07] VITALS: BP 112/64; PULSE 70; TEMP 98.3
[2018-03-02] MEDS ORDERED: predniSONE 20 MG TABLET (UD) PO SCH (10:00)
[2018-03-05] MEDS ORDERED: predniSONE 10 MG TABLET (UD) PO SCH (10:00)
[2018-03-08] MEDS ORDERED: predniSONE 5 MG TABLET (UD) PO SCH (10:00)
== END 2018-03-01 14:54 | disposition home health service (06) | DRG 549 ==
LOC: JER 11:42 → JERBED 14:44 → OBSVTOIN 16:05 → J7W 02-27 03:02
PROVIDERS: ADMIT Hospitalist; ATTEND Hospitalist
PROC: 0R9L3ZX Drainage of Right Elbow Joint, Percutaneous Approach, Diagnostic (ICD-10-PCS; 2018-02-26)
PROC: 0R9L0ZX Drainage of Right Elbow Joint, Open Approach, Diagnostic (ICD-10-PCS; principal; 2018-02-27)
DX: M00.9 Pyogenic arthritis, unspecified (principal); Z68.44 Body mass index [BMI] 60.0-69.9, adult; N17.9 Acute kidney failure, unspecified; I42.8 Other cardiomyopathies; I13.0 Hypertensive heart and chronic kidney disease with heart failure and stage 1 through stage 4 chronic kidney disease, or unspecified chronic kidney disease; I50.20 Unspecified systolic (congestive) heart failure; N39.0 Urinary tract infection, site not specified; M25.571 Pain in right ankle and joints of right foot; E78.5 Hyperlipidemia, unspecified; M06.9 Rheumatoid arthritis, unspecified; M19.021 Primary osteoarthritis, right elbow; M10.9 Gout, unspecified; B96.20 Unspecified Escherichia coli [E. coli] as the cause of diseases classified elsewhere; E11.42 Type 2 diabetes mellitus with diabetic polyneuropathy; E66.01 Morbid (severe) obesity due to excess calories; M00.821 Arthritis due to other bacteria, right elbow; J44.9 Chronic obstructive pulmonary disease, unspecified; D72.829 Elevated white blood cell count, unspecified; G47.33 Obstructive sleep apnea (adult) (pediatric); M54.40 Lumbago with sciatica, unspecified side; N18.9 Chronic kidney disease, unspecified; Z87.891 Personal history of nicotine dependence; Z99.81 Dependence on supplemental oxygen; Z95.810 Presence of automatic (implantable) cardiac defibrillator
CPT/HCPCS: 36415; 73070-TC-RT-FY; 73610-TC-LT-FY; 80048; 80053; 81003; 81015; 82962; 83735; 84100; 84550; 85025; 85044; 85610; 85651; 85730; 86140; 87040; 87070; 87075; 87086; 87186; 87205; 89051; 89060; 93005; 93010; 93971-TC; 94010; 94660; 94760; 97116-GP; 97161-GP; 99285-25; G0378; J0131; J1644; J7030